=== PATIENT | male | born 1950 | race Caucasian/White ===

== ENCOUNTER 2017-01-18 15:57 | Observation (INO) | payer BC, OTHER ==
[2017-01-18] VITALS (7 sets, daily range): BP systolic 147–176; BP diastolic 74–88; PULSE 53–60; RESP 16–18; TEMP 97.6–98.5; O2SAT 94–98
[~2017-01-18] VITALS: Ht 167.6 cm; Wt 100.0 kg
[~2017-01-18 15:57] MED LIST: B-COTAB41 PO; CALCCHW25 PO; CHOL1CAP6 PO; DIOV160T3 PO; FISH100020 PO; LABE200 PO; MEDR4PAK3 PO; SLOWTAB PO; TAMS0.4C67 PO; VITA400C70 PO
--- NOTE | 2017-01-18 16:36 | PD ---
HPI . abdominal pain x 2 weeks Chief Complaint: Abdominal Pain Time Seen by Provider: 16:29 Travel History International Travel<30 days: No Contact w/Intl Traveler<30days: No Traveled to known affect area: No History of Present Illness HPI 66-year-old male with history of hypertension and osteoarthritis here with complaints of abdominal pain that has been intermittent for the past 2 weeks. Patient reports that he has not had any nausea, vomiting or diarrhea. He reports a very dull abdominal pain that comes and goes especially with coughing and deep inspirations. At max pain is rated at 7/10, but currently his pain is 2/10. He admits to increase burping, but denies any reflux. He thought he initially pulled muscles, but says that his pain is not getting better and it still intermittently going on. He contacted his primary care provider Dr. Puente was told to come to the emergency department. He denies any nausea, vomiting, diarrhea, diaphoresis, chest pain or shortness of breath. On examination patient is showing me that the pain is located mainly in his upper left quadrant also radiating into his left chest. When he actually points to the pain he is pointing more so in the left lower chest wall. 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) Pacemaker: No Tonsillectomy: Yes Other Surgery: Yes (03/31 cerebral coiling; 03/01 knee arthroscopy) Social History Alcohol Use: Yes (OCCAS) Tobacco Use: No Substance Use: No Allergies-Medications (Allergen,Severity, Reaction): Coded Allergies: MRI PRECAUTION (Verified Allergy, Severe, 01/18/17) HEAD Reported Meds & Prescriptions Reported Meds & Active Scripts Active Medrol Dosepak (Methylprednisolone) 4 Mg Osman 4 Mg PO DIRECTED TAKE DIRECTED Reported Slow-Mag (Magnesium Chloride) 64 Mg Tab 2 Tab PO DAILY Fish Oil ([place]-3 Fatty Acids) 1,000 Mg Cap 1,000 Mg PO DAILY Vitamin E-400 (Vitamin E) 400 Unit Cap 400 Unit PO DAILY Vitamin B-Complex (Multivitamins/Vitamin B Complex) Vitamin Tab 1 Tab PO DAILY Vitamin D-3 (Cholecalciferol) 1,000 Unit Tab 1,000 Unit PO DAILY Calcium + D (Calcium Carbonate/Cholecalciferol) Chw 1 Tab PO DAILY 1200MG CALCIU,/D3 1000 IU Flomax (Tamsulosin HCl) 0.4 Mg Cap 0.4 Mg PO DAILY Diovan Hct 160/12.5 (HCTZ/Valsartan) Tab 1 Tab PO DAILY Trandate 200 mg Tab (Labetalol HCl) 200 Mg Tab 200 Mg PO DAILY Review of Systems General / Constitutional: No: Fever Eyes: No: Visual changes HENT: No: Headaches Cardiovascular: Positive: Chest Pain or Discomfort Respiratory: No: Shortness of Breath Gastrointestinal: Positive: Abdominal Pain (LUQ) Genitourinary: No: Dysuria Musculoskeletal: No: Pain Skin: No Rash Neurologic: No: Weakness Psychiatric: No: Depression Endocrine: No: Polydipsia Hematologic/Lymphatic: No: Easy Bruising Physical Exam Narrative GENERAL: AAO x 3, no acute distress, Well-nourished, well-developed patient. SKIN: Warm and dry. No visible rashes or bruising. HEAD: Normocephalic and atraumatic. EYES: No scleral icterus. No injection or drainage. EOM intact, PERRLA ENT: No nasal drainage noted. Mucous membranes pink. Airway patent. NECK: Supple, trachea midline. No JVD. CARDIOVASCULAR: Regular rate and rhythm without murmurs, gallops, or rubs. No reproducible chest pain on examination. RESPIRATORY: Breath sounds equal bilaterally. No accessory muscle use. No rhonchi or rales. GASTROINTESTINAL: Abdomen soft, non-tender, nondistended. No rebound, no guarding, no Smith's tenderness or McBurney's point tenderness EXTREMITIES: No cyanosis or edema. BACK: Nontender without obvious deformity. No CVA tenderness. No reproducible back pain on examination NEURO: CN II-12 intact, adobe flex developer strength normal b/l, UE and LE 5/5, no focal deficits PSYCH: AAO x 3, normal affect. Data Data Last Documented VS Vital Signs Date Time Temp Pulse Resp B/P Pulse Ox O2 Delivery O2 Flow Rate FiO2 01/18/17 16:38 57 Room Air 01/18/17 16:38 97 01/18/17 16:36 18 162/84 01/18/17 15:59 98.5 Orders Electrocardiogram (01/18/17 16:36) Basic Metabolic Panel (Bmp) (01/18/17 16:36) Ckmb (Isoenzyme) Profile (01/18/17 16:36) Complete Blood Count With Diff (01/18/17 16:36) Magnesium (Mg) (01/18/17 16:36) Prothrombin Time / Inr (Pt) (01/18/17 16:36) Act Partial Throm Time (Ptt) (01/18/17 16:36) Troponin I (01/18/17 16:36) Lipase (01/18/17 16:36) Chest, Single Ap (01/18/17 16:36) Ecg Monitoring (01/18/17 16:36) Bilateral Bp Monitoring (01/18/17 16:36) Iv Access Insert/Monitor (01/18/17 16:36) Oximetry (01/18/17 16:36) Oxygen Administration (01/18/17 16:36) Urinalysis - C+S If Indicated (01/18/17 16:36) CKMB (01/18/17 17:35) CKMB% (01/18/17 17:35) Admit Order (Ed Use Only) (01/18/17 18:22) Activity Bed Rest With Brp (01/18/17 18:23) Vital Signs (Adult) Q4H (01/18/17 18:23) Cardiac Rhythm .As Directed (01/18/17 18:23) Notify Dr: Other .PRN (01/18/17 18:23) Notify Dr. Parameters (01/18/17 18:23) Resp Oxygen Nasal Cannula (01/18/17 ) Ckmb (Isoenzyme) Profile (01/18/17 20:35) Ckmb (Isoenzyme) Profile (01/18/17 23:35) Troponin I (01/18/17 20:35) Troponin I (01/18/17 23:35) Electrocardiogram (01/18/17 18:23) ^ Obtain (01/18/17 18:23) Sodium Chloride 0.9% Flush (Ns Flush) (01/18/17 18:30) Sodium Chloride 0.9% Flush (Ns Flush) (01/18/17 21:00) Daylight Driller / Telemetry DEBO.Q8H (01/18/17 18:23) Labs Laboratory Tests Test 01/18/17 17:35 White Blood Count 6.6 TH/MM3 Red Blood Count 4.59 MIL/MM3 Hemoglobin 14.0 GM/DL Hematocrit 41.1 % Mean Corpuscular Volume 89.5 FL Mean Corpuscular Hemoglobin 30.6 PG Mean Corpuscular Hemoglobin 34.1 % Concent Red Cell Distribution Width 13.5 % Platelet Count 166 TH/MM3 Mean Platelet Volume 8.7 FL Neutrophils (%) (Auto) 62.6 % Lymphocytes (%) (Auto) 23.4 % Monocytes (%) (Auto) 10.6 % Eosinophils (%) (Auto) 2.8 % Basophils (%) (Auto) 0.6 % Neutrophils # (Auto) 4.1 TH/MM3 Lymphocytes # (Auto) 1.5 TH/MM3 Monocytes # (Auto) 0.7 TH/MM3 Eosinophils # (Auto) 0.2 TH/MM3 Basophils # (Auto) 0.0 TH/MM3 CBC Comment DIFF FINAL Differential Comment Prothrombin Time 10.9 SEC Prothromb Time International 1.0 RATIO Ratio Activated Partial 26.6 SEC Thromboplast Time Urine Color YELLOW Urine Turbidity CLEAR Urine pH 6.5 Urine Specific [place] 1.027 Urine Protein TRACE mg/dL Urine Glucose (UA) NEG mg/dL Urine Ketones NEG mg/dL Urine Occult Blood NEG Urine Nitrite NEG Urine Bilirubin NEG Urine Urobilinogen LESS THAN 2.0 MG/DL Urine Leukocyte Esterase NEG Urine Hyaline Casts 2 /lpf Urine Mucus FEW /lpf Microscopic Urinalysis Comment CULT NOT INDICATED Sodium Level 140 MEQ/L Potassium Level 4.0 MEQ/L Chloride Level 106 MEQ/L Carbon Dioxide Level 27.2 MEQ/L Anion Gap 7 MEQ/L Blood Urea Nitrogen 23 MG/DL Creatinine 1.04 MG/DL Estimat Glomerular Filtration 72 ML/MIN Rate Random Glucose 78 MG/DL Calcium Level 9.1 MG/DL Magnesium Level 2.3 MG/DL Total Creatine Kinase 198 U/L Creatine Kinase MB 2.2 NG/ML Troponin I LESS THAN 0.02 NG/ML Lipase 210 U/L [facility] Medical Decision Making Medical Screen Exam Complete: Yes Emergency Medical Condition: Yes Medical Record Reviewed: Yes Differential Diagnosis Angina, chest pain, pancreatitis, ACS, colitis, constipation, diverticulitis, less likely appendicitis Narrative Course 66-year-old male here with complaints of abdominal pain. On examination patient is more so pointing to his chest area. Abdominal examination is benign. It is possible that he may have angina versus ACS versus pancreatitis. IV access has been obtained. Patient placed on continuous cardiac monitoring. Labs, chest x-ray and EKG have been ordered. Case has been discussed with my attending Dr. Oshea. I do not think scanning patient's abdomen will benefit him. The entire abdominal examination is unremarkable. He could have some pulled muscles causing his symptoms. I reviewed all of the labs. I discussed with patient and his family at bedside. Last Impressions Chest X-Ray 01/18/17 1636 Signed Impressions: Service Date/Time: Saturday, January 18, 2017 16:46 - CONCLUSION: 1. No acute cardiopulmonary disease. Hollis Chua MD Laboratory Tests Test 01/18/17 17:35 White Blood Count 6.6 TH/MM3 Red Blood Count 4.59 MIL/MM3 Hemoglobin 14.0 GM/DL Hematocrit 41.1 % Mean Corpuscular Volume 89.5 FL Mean Corpuscular Hemoglobin 30.6 PG Mean Corpuscular Hemoglobin 34.1 % Concent Red Cell Distribution Width 13.5 % Platelet Count 166 TH/MM3 Mean Platelet Volume 8.7 FL Neutrophils (%) (Auto) 62.6 % Lymphocytes (%) (Auto) 23.4 % Monocytes (%) (Auto) 10.6 % Eosinophils (%) (Auto) 2.8 % Basophils (%) (Auto) 0.6 % Neutrophils # (Auto) 4.1 TH/MM3 Lymphocytes # (Auto) 1.5 TH/MM3 Monocytes # (Auto) 0.7 TH/MM3 Eosinophils # (Auto) 0.2 TH/MM3 Basophils # (Auto) 0.0 TH/MM3 CBC Comment DIFF FINAL Differential Comment Prothrombin Time 10.9 SEC Prothromb Time International 1.0 RATIO Ratio Activated Partial 26.6 SEC Thromboplast Time Urine Color YELLOW Urine Turbidity CLEAR Urine pH 6.5 Urine Specific [place] 1.027 Urine Protein TRACE mg/dL Urine Glucose (UA) NEG mg/dL Urine Ketones NEG mg/dL Urine Occult Blood NEG Urine Nitrite NEG Urine Bilirubin NEG Urine Urobilinogen LESS THAN 2.0 MG/DL Urine Leukocyte Esterase NEG Urine Hyaline Casts 2 /lpf Urine Mucus FEW /lpf Microscopic Urinalysis Comment CULT NOT INDICATED Sodium Level 140 MEQ/L Potassium Level 4.0 MEQ/L Chloride Level 106 MEQ/L Carbon Dioxide Level 27.2 MEQ/L Anion Gap 7 MEQ/L Blood Urea Nitrogen 23 MG/DL Creatinine 1.04 MG/DL Estimat Glomerular Filtration 72 ML/MIN Rate Random Glucose 78 MG/DL Calcium Level 9.1 MG/DL Magnesium Level 2.3 MG/DL Total Creatine Kinase 198 U/L Creatine Kinase MB 2.2 NG/ML Troponin I LESS THAN 0.02 NG/ML Lipase 210 U/L I recommend admission to the chest pain center for serial monitoring of cardiac enzymes and EKG. I will also check a CT angio to R/O PE. CT angio is negative for pulmonary emboli. I have discussed with family and patient and he is in agreement. Diagnosis Primary Impression: Chest pain Qualified Code: R07.1 - Chest pain on breathing Admitting Information Admitting Physician Requests: Admit Condition: Stable Jessica Hernandez Jan 18, 2017 16:36
--- NOTE | 2017-01-18 17:11 | RADRPT ---
EXAM DATE/TIME: 01/18/2017 16:46 [facility] COMPARISON: CHEST PA & LAT, May 24, 2014, 9:34. INDICATIONS : Chest pain sudden onset today. MEDICAL HISTORY : None. SURGICAL HISTORY : None. ENCOUNTER: Initial ACUITY: 1 day PAIN SCORE: 4/10 LOCATION: Bilateral chest FINDINGS: Lungs are slightly hypoaerated but are otherwise clear. Redemonstration of tortuous thoracic aorta. C ardio mediastinal contours are stable. Bony thorax is grossly intact. CONCLUSION: 1. No acute cardiopulmonary disease. Hollis Chua MD on January 18, 2017 at 17:08 Board Certified Radiologist. This report was verified electronically.
[2017-01-18 17:51] LABS: BLOOD, URINE NEG (NEG); COMMENT (UR) CULT NOT INDICATED; CULTURE IF INDICATED CULT NOT INDICATED; GLUCOSE,URINE NEG (NEG); HYALINE CAST, URINE 2 /lpf (RARE); KETONE, URINE NEG (NEG); MUCUS URINE FEW /lpf (OCC); NITRITE,URINE NEG (NEG); PH, URINE 6.5 (5.0-8.5); URINE COLOR YELLOW (YELLW/STRAW)
[2017-01-18 18:00] LABS: APTT (PATIENT) 26.6 SEC (24.3-30.1); PROTHROMBIN TIME - PATIENT 10.9 SEC (9.8-11.6)
[2017-01-18 18:01] LABS: AUTOMATED NEUTROPHIL # 4.1 TH/MM3 (1.8-7.7); BASOPHIL % 0.6 % (0.0-2.0); EOSINOPHIL # 0.2 TH/MM3 (0-0.4); EOSINOPHIL % 2.8 % (0.0-4.0); HEMATOCRIT 41.1 % (39.0-51.0); HEMO FLAGS DIFF FINAL; LYMPH % 23.4 % (9.0-44.0); LYMPHOCYTE # 1.5 TH/MM3 (1.0-4.8); MEAN CELL VOLUME 89.5 FL (80.0-100.0); MEAN CORPUSCULAR HEMOGLOBIN 30.6 PG (27.0-34.0); MEAN CORPUSCULAR HGB CONC 34.1 % (32.0-36.0); MONO % 10.6 % (0.0-8.0); NEUT % 62.6 % (16.0-70.0); PLATELET COUNT 166 TH/MM3 (150-450); RED BLOOD COUNT 4.59 MIL/MM3 (4.50-5.90); RED CELL DISTRIBUTION WIDTH 13.5 % (11.6-17.2); WHITE BLOOD COUNT 6.6 TH/MM3 (4.0-11.0)
[2017-01-18 18:09] LABS: CREATINE KINASE 198 U/L (39-308)
[2017-01-18 18:15] LABS: ANION GAP 7 MEQ/L (5-15); BICARBONATE 27.2 MEQ/L (21.0-32.0); BLOOD UREA NITROGEN 23 MG/DL (7-18); CHLORIDE 106 MEQ/L (98-107); GLOMERULAR FILTRATION RATE 72 ML/MIN (>89); MAGNESIUM 2.3 MG/DL (1.5-2.5); SODIUM (NA) 140 MEQ/L (136-145)
[2017-01-18 18:22] LABS: CKMB 2.2 NG/ML (0.5-3.6)
[2017-01-18] MEDS ORDERED: SODIUM CHLORIDE 0.9% FLUSH 10 ML FLUSH IV FLUSH PRN (18:30)
[2017-01-18] MEDS ORDERED: IOHEXOL 350 MG/ML 10 ML VIAL (for RAD DIAG) IV ONE (19:41)
--- NOTE | 2017-01-18 20:02 | RADRPT ---
EXAM DATE/TIME: 01/18/2017 19:28 [facility] COMPARISON: No previous studies available for comparison. INDICATIONS : Chest pain. IV CONTRAST: 65 cc Omnipaque 350 (iohexol) IV RADIATION DOSE: 16.64 CTDIvol (mGy) MEDICAL HISTORY : Cardiovascular disease. SURGICAL HISTORY : None. ENCOUNTER: Initial ACUITY: 1 day PAIN SCALE: 5/10 LOCATION: chest TECHNIQUE: Volumetric scanning of the chest was performed using a pulmonary embolism protocol MIP images were re constructed. Using automated exposure control and adjustment of the mA and/or kV according to patien t size, radiation dose was kept as low as reasonably achievable to obtain optimal diagnostic quality images. DICOM format image data is available electronically for review and comparison. Follow-up recommendations for incidentally detected pulmonary nodules are based at a minimum on nodul e size and patient risk factors according to Fleischner Society Guidelines. FINDINGS: No filling defects identified to suggest pulmonary embolic disease. Minimal dependent atelectasis in the lungs. No consolidation. No effusion. No adenopathy. CONCLUSION: 1. Negative for pulmonary embolus. No acute findings. Rafael Reis MD on January 18, 2017 at 19:58 Board Certified Radiologist. This report was verified electronically.
[2017-01-18] MEDS ORDERED: MELO7.5T4 PO (20:36)
[2017-01-18] MEDS ORDERED: DIOV160T3 PO (20:36)
[2017-01-18] MEDS ORDERED: LABE200T2 PO (20:36)
[2017-01-18] MEDS ORDERED: ASPI325T PO (20:36)
[2017-01-18] MEDS ORDERED: TAMS0.4C4 PO (20:36)
[2017-01-18] MEDS: SODIUM CHLORIDE 0.9% FLUSH 10 ML FLUSH IV FLUSH SCH (21:00)
[2017-01-18 22:13] LABS: CREATINE KINASE 180 U/L (39-308)
[2017-01-18] MEDS ORDERED: ACETAMINOPHEN 325 MG TAB PO PRN (22:15)
[2017-01-18] MEDS ORDERED: cloNIDine HCL 0.2 MG TAB PO PRN (22:15)
[2017-01-18 22:25] LABS: CKMB 1.7 NG/ML (0.5-3.6)
[2017-01-19] VITALS (8 sets, daily range): BP systolic 108–139; BP diastolic 68–85; PULSE 45–68; RESP 18; TEMP 97.7–97.8; O2SAT 93–98
[2017-01-19 01:12] LABS: CREATINE KINASE 173 U/L (39-308)
[2017-01-19 01:24] LABS: CKMB 1.3 NG/ML (0.5-3.6)
[2017-01-19] MEDS ORDERED: NITROGLYCERIN 0.4 MG SL 25 TABS/BTL SL PRN (07:45)
[2017-01-19] MEDS ORDERED: ONDANSETRON HCL 4 MG/2 ML VIAL IV PRN (07:45)
[2017-01-19] MEDS: SODIUM CHLORIDE 0.9% FLUSH 10 ML FLUSH IV FLUSH SCH (09:00)
[2017-01-19] MEDS ORDERED: ASPIRIN 325 MG TAB PO SCH (09:00)
--- NOTE | 2017-01-19 09:09 | HHI.HP ---
HPI Primary Care Physician Mimi Puente MD Chief Complaint Chest pain History of Present Illness 66-year-old patient with history of hypertension presents to the emergency room for further evaluation of left-sided chest pain. Onset 3 weeks ago. Location left lower rib area. Made worse with movements, coughing, and/or twisting. Breathing does not make pain better or worse. Yesterday he sneeze and pain lasted 30 minutes. Radiated or/10. No associated symptoms of nausea, vomiting , diaphoresis, or shortness of breath. No known precipitating or relieving factors. No known trauma or injury to affected area. Subsequently called his primary care provider, Dr. Puente, and he was recommended to come to the ER for further evaluation. Review of Systems General: No fatigue,weakness, fever, chills, recent illness, or change in appetite. Has been in his general state of health. HEENT: No MARIA, no vision changes, no dysphasia CV: As stated above. Continues to have left sided lower rib discomfort made worse with movement. RESP: No SOB, cough, wheeze, or history of asthma GI: No nausea, vomiting, bowel changes, diarrhea, constipation, pain, distention , melena, or blood in the stool. No change in appetite, no unintentional weight gain or weight loss. : No dysuria EXT: No lower leg edema, no paraesthesias MS: No discomfort or change in ROM, no known injury, trauma, or recent fall NEURO: No difficulty with balance, LOC, motor/sensory deficits SKIN: No rashes, no concerning lesions Past Family Social History Allergies: Coded Allergies: MRI PRECAUTION (Verified Allergy, Severe, 01/18/17) HEAD Past Medical History Hypertension, osteoarthritis Past Surgical History Cerebral coiling Reported Medications Reported Meds & Active Scripts Active Reported Labetalol (Labetalol HCl) 200 Mg Tab 200 Mg PO DAILY Diovan Hct (Valsartan-Hydrochlorothiazide) 160-12.5 Mg Tab 1 Tab PO DAILY Meloxicam 7.5 Mg Tab 7.5 Mg PO DAILY Aspirin 325 Mg Tab 325 Mg PO DAILY Tamsulosin (Tamsulosin HCl) 0.4 Mg Cap 0.4 Mg PO HS Active Ordered Medications Current Medications Medications (Trade) Dose Ordered Sig/Inga Route Start Time Stop Time Status Last Admin (NS Flush) 2 ml UNSCH PRN IV FLUSH 01/18/17 18:30 (NS Flush) 2 ml BID IV FLUSH 01/18/17 21:00 01/18/17 21:00 (Tylenol) 650 mg Q6H PRN PO 01/18/17 22:15 01/18/17 22:30 (Catapres) 0.2 mg Q6H PRN PO 01/18/17 22:15 01/18/17 22:30 (Zofran Inj) 4 mg Q6H PRN IV 01/19/17 07:45 (Nitrostat Sl) 0.4 mg Q5M PRN SL 01/19/17 07:45 (Aspirin) 325 mg DAILY PO 01/19/17 09:00 Family History Noncontributory for early onset cardiovascular disease. Social History Known hypertension. No known diabetes or hyperlipidemia. Quit smoking over 30 years ago. Denies any alcohol or illegal drug use. 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 Past cardiac testing No recent stress testing. Endorses chemical stress test approximately 5 years ago. Never required cardiac catheterization. Physical Exam Vital Signs Vital Signs Date Time Temp Pulse Resp B/P Pulse Ox O2 Delivery O2 Flow Rate FiO2 01/19/17 07:10 97.8 45 139/85 93 01/19/17 04:45 48 01/19/17 03:38 97.7 56 18 127/79 98 01/19/17 00:48 47 01/19/17 00:21 96 01/19/17 00:20 96 01/19/17 00:06 97.7 55 18 108/68 97 01/18/17 21:30 53 01/18/17 21:24 97.6 53 18 176/86 94 01/18/17 20:36 52 18 152/74 98 01/18/17 20:00 55 18 161/88 01/18/17 16:38 57 Room Air 01/18/17 16:38 57 01/18/17 16:38 97 01/18/17 16:36 60 18 162/84 96 Room Air 01/18/17 15:59 98.5 53 16 147/87 98 Room Air Physical Exam GENERAL: Alert WN, WD, NAD, pleasant, obese, male HEAD: NC, AT EYES: Sclera clear, conjunctiva without injection, pupils equal and round ENT: Mucous membranes pink and moist NECK: Supple, no masses, trachea midline CV: RRR, without murmur, rub, gallop, no JVD, S1-S2 no S3-S4. No carotid bruits. RESP: Clear lungs throughout bilateral, no crackles, wheeze, rhonchi, symmetrical chest rise, nonlabored, able to speak in full sentences ABD: Soft, NT, ND, no masses, positive bowel tones, obese, round BACK: No CVAT, no scoliosis EXT: Pulses +24, no dependent edema MS: Normal tone 4 extremities, nontender, no obvious deformities, full range of motion NEURO: CN II through CN XII grossly intact, motor strength 5/5, gait WNL PSYCH: A+O 3, pleasant affect, appropriate speech, appropriate mood and affect , insight and judgment SKIN: Normal turgor, normal texture, no lesions, no rashes, brisk cap refill, even hair distribution Laboratory Laboratory Tests Test 01/18/17 01/18/17 01/19/17 17:35 21:15 00:10 White Blood Count 6.6 Red Blood Count 4.59 Hemoglobin 14.0 Hematocrit 41.1 Mean Corpuscular Volume 89.5 Mean Corpuscular Hemoglobin 30.6 Mean Corpuscular Hemoglobin 34.1 Concent Red Cell Distribution Width 13.5 Platelet Count 166 Mean Platelet Volume 8.7 Neutrophils (%) (Auto) 62.6 Lymphocytes (%) (Auto) 23.4 Monocytes (%) (Auto) 10.6 Eosinophils (%) (Auto) 2.8 Basophils (%) (Auto) 0.6 Neutrophils # (Auto) 4.1 Lymphocytes # (Auto) 1.5 Monocytes # (Auto) 0.7 Eosinophils # (Auto) 0.2 Basophils # (Auto) 0.0 CBC Comment DIFF FINAL Differential Comment Prothrombin Time 10.9 Prothromb Time International 1.0 Ratio Activated Partial 26.6 Thromboplast Time Urine Color YELLOW Urine Turbidity CLEAR Urine pH 6.5 Urine Specific [place] 1.027 Urine Protein TRACE Urine Glucose (UA) NEG Urine Ketones NEG Urine Occult Blood NEG Urine Nitrite NEG Urine Bilirubin NEG Urine Urobilinogen LESS THAN 2.0 Urine Leukocyte Esterase NEG Urine Hyaline Casts 2 Urine Mucus FEW Microscopic Urinalysis Comment CULT NOT INDICATED Sodium Level 140 Potassium Level 4.0 Chloride Level 106 Carbon Dioxide Level 27.2 Anion Gap 7 Blood Urea Nitrogen 23 Creatinine 1.04 Estimat Glomerular Filtration 72 Rate Random Glucose 78 Calcium Level 9.1 Magnesium Level 2.3 Total Creatine Kinase 198 180 173 Creatine Kinase MB 2.2 1.7 1.3 Troponin I LESS THAN 0.02 LESS THAN 0.02 LESS THAN 0.02 Lipase 210 Result Diagram: 01/18/17 1735 01/18/17 [address] Angiography 01/18/17 1831 Signed Impressions: Service Date/Time: Wednesday, January 18, 2017 19:28 - CONCLUSION: 1. Negative for pulmonary embolus. No acute findings. Rafael Reis MD Chest X-Ray 01/18/17 1636 Signed Impressions: Service Date/Time: Wednesday, January 18, 2017 16:46 - CONCLUSION: 1. No acute cardiopulmonary disease. Hollis Chua MD Course EKG Normal sinus bradycardia, left axis deviation, nonspecific T-wave changes Assessment and Plan Assessment and Plan Chest wall painadmitted to chest pain center. Ruled out with 3 sets of EKGs, cardiac enzymes, monitor overnight. Seen and evaluated by Dr. Walt Chen. Completed exercise stress test with no signs of ischemia. Discharge home with follow-up to Dr. Puente. Toradol 30 mg IV 1 dose, continue meloxicam home- going. Hypertensioncontinue Diovan, encouraged a low sodium diet, and increasing daily activity. Aleta Huerta Jan 19, 2017 09:09
[2017-01-19] MEDS ORDERED: VALSARTAN 160 MG TAB PO SCH (09:15)
[2017-01-19] MEDS ORDERED: KETOROLAC TROMETHAMINE 60 MG/2 ML (IM) VIAL IM ONE (09:15)
[2017-01-19] MEDS ORDERED: HYDROCHLOROTHIAZIDE 12.5 MG CAP PO SCH (09:15)
--- NOTE | 2017-01-19 10:41 | TR ---
Date Performed: 01/19/2017 Time Performed: 09:40:18 DOCTOR: Walt Chen DRUG LIST: CLINICAL HISTORY: REASON FOR TEST: Chest pain REASON FOR ENDING: OBSERVATION: CONCLUSION: Abdon protocol completed. Stopped sec reaching target heart rate and leg fatigue.Tar get HR Achieved=85.0% Maximum BY=882/96 Total Exercise Time=8:32 Maximum PT=939. No chest discomfort. No ectopy. No st t segment changes to sugg ischemia. Good exercise tolerance. Normal bp response. Re covery quick and unremarkable. COMMENTS: Conclusion: Normal treadmill exercise. No evidence of ischemia.
--- NOTE | 2017-01-19 11:01 | HHI.DCPOC ---
Discharge Care Plan Diagnosis: (1) Chest wall pain Goals to Promote Your Health * To prevent worsening of your condition and complications * To maintain your health at the optimal level Directions to Meet Your Goals Take your medications as prescribed Follow your dietary instruction Follow activity as directed Keep your appointments as scheduled Take your immunizations and boosters as scheduled If your symptoms worsen call your PCP, if no PCP go to Urgent Care Center or Emergency Room Smoking is Dangerous to Your Health. Avoid second hand smoke Call the 24-hour hour crisis hotline for domestic abuse at Walt Chen MD Jan 19, 2017 11:01
--- NOTE | 2017-01-19 17:11 | EKG ---
Date Performed: 01/19/2017 Time Performed: 00:12:22 PTAGE: 66 years EKG: SINUS BRADYCARDIA MARKED LEFT AXIS DEVIATION MODERATE INTRAVENTRICULAR CONDUCTION DELAY NON SPECIFIC T-WAVE ABNORMALITY ABNORMAL ECG PREVIOUS TRACING : 01/18/2017 21.14 Since previous tracing, no significant change noted DOCTOR: Walt Chen Interpretating Date/Time 01/19/2017 17:10:24
--- NOTE | 2017-01-19 17:14 | EKG ---
Date Performed: 01/18/2017 Time Performed: 21:14:09 PTAGE: 66 years EKG: SINUS BRADYCARDIA WITH PACs MARKED LEFT AXIS DEVIATION MODERATE INTRAVENTRICULAR CONDUCTION DELAY ABNORMAL ECG PREVIOUS TRACING : 01/18/2017 16.44 Compared to previous tracing ,PACs are new. DOCTOR: Walt Chen Interpretating Date/Time 01/19/2017 17:12:39
--- NOTE | 2017-01-19 17:16 | EKG ---
Date Performed: 01/18/2017 Time Performed: 16:44:24 PTAGE: 66 years EKG: SINUS BRADYCARDIA MARKED LEFT AXIS DEVIATIon MODERATE INTRAVENTRICULAR CONDUCTION DELAY ABN ORMAL ECG PREVIOUS TRACING : 05/24/2014 09.18 Since previous tracing, no significant change noted DOCTOR: Walt Chen Interpretating Date/Time 01/19/2017 17:16:30
== END 2017-01-19 11:51 | disposition home or self-care (01) ==
LOC: NEPC 15:57 → NEDA 18:24 → NEPHCDU 20:48
PROVIDERS: ADMIT Internal Medicine Interventional Cardiology; ATTEND Internal Medicine Interventional Cardiology
DX: R07.1 Chest pain on breathing (principal); I10 Essential (primary) hypertension; R00.1 Bradycardia, unspecified; M19.90 Unspecified osteoarthritis, unspecified site; Z79.82 Long term (current) use of aspirin
CPT/HCPCS: 71010; 71275; 80048; 81001; 82550; 82552; 83690; 83735; 84484; 85025; 85610; 85730; 93005; 93017; 99285; G0378; J1885; Q9967

== ENCOUNTER 2017-07-30 15:13 | Inpatient (IN) | payer BC ==
[~2017-07-30] VITALS: Ht 170.2 cm; Wt 101.5 kg
[~2017-07-30 15:13] MED LIST changes: +ASPI-183 PO; -B-COTAB41 PO; -CALCCHW25 PO; -CHOL1CAP6 PO; -FISH100020 PO; -LABE200 PO; +LABE200T2 PO; -MEDR4PAK3 PO; +MELO7.5T27 PO; -SLOWTAB PO; +TAMS0.4C4 PO; -TAMS0.4C67 PO; -VITA400C70 PO
[2017-07-30 15:20] VITALS: BP 80/64; PULSE 150; RESP 20; TEMP 97.9; O2SAT 96
[2017-07-30] MEDS ORDERED: SODIUM CHLOR 0.9% 1000 ML INJ 1,000 ML IV ONE (15:26)
[2017-07-30] MEDS ORDERED: SODIUM CHLORIDE 0.9% FLUSH 10 ML FLUSH IVF PRN (15:30)
--- NOTE | 2017-07-30 15:36 | PD ---
HPI Chief Complaint: dizziness Time Seen by Provider: 15:20 Travel History International Travel<30 days: No Contact w/Intl Traveler<30days: No Traveled to known affect area: No History of Present Illness HPI The patient is a 66-year-old male who presents to the emergency department via EMS from the [facility] (formerly [facility]) for dizziness. The patient states he was shoveling dirt earlier today when he developed lightheadedness and dizziness. The patient also complains of an elevated heart rate, mild shortness of breath, and some anterior left-sided chest discomfort which has resolved. When EMS arrived he stated the patient was in A. fib with RVR and a low blood pressure with a systolic in the 80s. The patient does not have a history of atrial fibrillation, has been seen by Dr. Chen of the chest pain Center in the past with negative stress test. The patient currently takes aspirin as well as labetalol for his A. fib. He denies any headache, nausea, vomiting, diarrhea, or abdominal pain. Symptoms are moderate, have slightly improved since arrival to the emergency department. The patient took a full size aspirin this morning. PFSH Past Medical History Heart Rhythm Problems: No Cancer: No Cardiac Catheterization: No Cardiovascular Problems: Yes High Cholesterol: No Congestive Heart Failure: No Diabetes: No Diminished Hearing: No Endocrine: No Gastrointestinal Disorders: No Glaucoma: No Genitourinary: No Headaches: Yes Hepatitis: No Hiatal Hernia: No Hypertension: Yes Immune Disorder: No Musculoskeletal: Yes Neurologic: No Psychiatric: No Respiratory: No Thyroid Disease: No Past Surgical History Body Medical Devices: COIL ANEURYSM Coronary Artery Bypass Graft: No Eye Surgery: Yes (RIGHT CATARACT) Genitourinary Surgery: Yes Neurologic Surgery: Yes (BASILAR TIP ANEURYSM COILED 2007) Pacemaker: No Tonsillectomy: Yes Other Surgery: Yes (03/31 cerebral coiling; 03/01 knee arthroscopy) Social History Alcohol Use: Yes (OCCAS) Tobacco Use: No (quit 30 yrs ago) Substance Use: No Allergies-Medications (Allergen,Severity, Reaction): Coded Allergies: MRI PRECAUTION (Verified Allergy, Severe, 01/18/17) HEAD Reported Meds & Prescriptions Reported Meds & Active Scripts Active Reported Labetalol (Labetalol HCl) 200 Mg Tab 200 Mg PO DAILY Diovan Hct (Valsartan-Hydrochlorothiazide) 160-12.5 Mg Tab 1 Tab PO DAILY Meloxicam 7.5 Mg Tab 7.5 Mg PO DAILY Aspirin 325 Mg Tab 325 Mg PO DAILY Tamsulosin (Tamsulosin HCl) 0.4 Mg Cap 0.4 Mg PO HS Review of Systems Except as stated in HPI: all other systems reviewed are Neg General / Constitutional: No: Fever HENT: Positive: Lightheadedness Cardiovascular: Positive: Chest Pain or Discomfort, Palpitations, Irregular Rhythm, Tachycardia Respiratory: Positive: Shortness of Breath Gastrointestinal: No: Nausea, Vomiting, Diarrhea, Abdominal Pain Musculoskeletal: Positive: Weakness Neurologic: Positive: Dizziness Physical Exam Narrative GENERAL: Awake, alert, pleasant 66-year-old male who appears his stated age and is in no acute respiratory distress. SKIN: Focused skin assessment warm/dry. HEAD: Atraumatic. Normocephalic. EYES: Pupils equal and round. No scleral icterus. No injection or drainage. ENT: No nasal bleeding or discharge. Mucous membranes pink and moist. NECK: Trachea midline. No JVD. CARDIOVASCULAR: Irregularly irregular, tachycardic with a heart rate in the 140s. RESPIRATORY: No accessory muscle use. Clear to auscultation. Breath sounds equal bilaterally. GASTROINTESTINAL: Abdomen soft, non-tender, nondistended. No rebound tenderness. MUSCULOSKELETAL: No obvious deformities. No clubbing. No cyanosis. No edema. NEUROLOGICAL: Awake and alert. No obvious cranial nerve deficits. Motor grossly within normal limits. Normal speech. PSYCHIATRIC: Appropriate mood and affect; insight and judgment normal. Data Data Last Documented VS Vital Signs Date Time Temp Pulse Resp B/P (MAP) Pulse Ox O2 Delivery O2 Flow Rate FiO2 07/30/17 16:01 132 110/58 (75) 07/30/17 15:45 17 98 Nasal Cannula 2.00 07/30/17 15:20 97.9 Orders Orders Electrocardiogram (07/30/17 15:26) Complete Blood Count With Diff (07/30/17 15:26) Comprehensive Metabolic Panel (07/30/17 15:26) Magnesium (Mg) (07/30/17 15:26) B-Type Natriuretic Peptide (07/30/17 15:26) Ckmb (Isoenzyme) Profile (07/30/17 15:26) Troponin I (07/30/17 15:26) Chest, Single Ap (07/30/17 15:26) Ecg Monitoring (07/30/17 15:26) Iv Access Insert/Monitor (07/30/17 15:26) Oximetry (07/30/17 15:26) Sodium Chloride 0.9% Flush (Ns Flush) (07/30/17 15:30) Sodium Chlor 0.9% 1000 Ml Inj (Ns 1000 M (07/30/17 15:26) Digoxin Inj (Lanoxin Inj) (07/30/17 15:45) Diltiazem Inj (Cardizem Inj) (07/30/17 16:15) Diltiazem Inj (Cardizem Inj) (07/30/17 16:15) CKMB (07/30/17 15:50) CKMB% (07/30/17 15:50) Labs Laboratory Tests Test 07/30/17 15:50 White Blood Count 10.0 TH/MM3 Red Blood Count 4.67 MIL/MM3 Hemoglobin 14.1 GM/DL Hematocrit 41.8 % Mean Corpuscular Volume 89.5 FL Mean Corpuscular Hemoglobin 30.2 PG Mean Corpuscular Hemoglobin Concent 33.7 % Red Cell Distribution Width 13.8 % Platelet Count 208 TH/MM3 Mean Platelet Volume 9.1 FL Neutrophils (%) (Auto) 87.9 % Lymphocytes (%) (Auto) 8.0 % Monocytes (%) (Auto) 3.1 % Eosinophils (%) (Auto) 0.6 % Basophils (%) (Auto) 0.4 % Neutrophils # (Auto) 8.8 TH/MM3 Lymphocytes # (Auto) 0.8 TH/MM3 Monocytes # (Auto) 0.3 TH/MM3 Eosinophils # (Auto) 0.1 TH/MM3 Basophils # (Auto) 0.0 TH/MM3 CBC Comment DIFF FINAL Differential Comment Blood Urea Nitrogen 28 MG/DL Creatinine 2.23 MG/DL Random Glucose 152 MG/DL Total Protein 7.6 GM/DL Albumin 3.9 GM/DL Calcium Level 9.6 MG/DL Magnesium Level 2.1 MG/DL Alkaline Phosphatase 73 U/L Aspartate Amino Transf (AST/SGOT) 25 U/L Alanine Aminotransferase (ALT/SGPT) 36 U/L Total Bilirubin 1.3 MG/DL Sodium Level 143 MEQ/L Potassium Level 4.4 MEQ/L Chloride Level 109 MEQ/L Carbon Dioxide Level 23.6 MEQ/L Anion Gap 10 MEQ/L Estimat Glomerular Filtration Rate 30 ML/MIN Total Creatine Kinase 308 U/L Creatine Kinase MB 3.8 NG/ML Troponin I 0.13 NG/ML Exceptions Acute Myocardial Infarction ASA Not Given on Arrival: Already taken by patient MDM Medical Decision Making Medical Screen Exam Complete: Yes Emergency Medical Condition: Yes Medical Record Reviewed: Yes Interpretation(s) EKG reveals atrial fibrillation with RVR. Left anterior fascicular block. Nonspecific ST changes. EKG #2 reveals sinus rhythm with sinus arrhythmia. Inverted T-wave in lead 3. Nonspecific ST depressions. Laboratory Tests Test 07/30/17 15:50 White Blood Count 10.0 TH/MM3 Red Blood Count 4.67 MIL/MM3 Hemoglobin 14.1 GM/DL Hematocrit 41.8 % Mean Corpuscular Volume 89.5 FL Mean Corpuscular Hemoglobin 30.2 PG Mean Corpuscular Hemoglobin Concent 33.7 % Red Cell Distribution Width 13.8 % Platelet Count 208 TH/MM3 Mean Platelet Volume 9.1 FL Neutrophils (%) (Auto) 87.9 % Lymphocytes (%) (Auto) 8.0 % Monocytes (%) (Auto) 3.1 % Eosinophils (%) (Auto) 0.6 % Basophils (%) (Auto) 0.4 % Neutrophils # (Auto) 8.8 TH/MM3 Lymphocytes # (Auto) 0.8 TH/MM3 Monocytes # (Auto) 0.3 TH/MM3 Eosinophils # (Auto) 0.1 TH/MM3 Basophils # (Auto) 0.0 TH/MM3 CBC Comment DIFF FINAL Differential Comment Blood Urea Nitrogen 28 MG/DL Creatinine 2.23 MG/DL Random Glucose 152 MG/DL Total Protein 7.6 GM/DL Albumin 3.9 GM/DL Calcium Level 9.6 MG/DL Magnesium Level 2.1 MG/DL Alkaline Phosphatase 73 U/L Aspartate Amino Transf (AST/SGOT) 25 U/L Alanine Aminotransferase (ALT/SGPT) 36 U/L Total Bilirubin 1.3 MG/DL Sodium Level 143 MEQ/L Potassium Level 4.4 MEQ/L Chloride Level 109 MEQ/L Carbon Dioxide Level 23.6 MEQ/L Anion Gap 10 MEQ/L Estimat Glomerular Filtration Rate 30 ML/MIN Total Creatine Kinase 308 U/L Troponin I 0.13 NG/ML Differential Diagnosis Differential diagnosis includes A. fib with RVR, hypotension, electrolyte abnormality, pulmonary edema, congestive heart failure, cardiomyopathy, ACS. Narrative Course IV was established, labs are drawn and sent, and the patient was placed on cardiac telemetry monitoring and continuous pulse oximetry monitoring. Patient' s manual blood pressure reveal a systolic in the 80s, therefore, the patient was administered 1 L of IV fluids and digoxin 0.5 mg intravenously. Chest x- ray was obtained. EKG was ordered and interpreted. The patient was digoxin, he went into a normal sinus rhythm at approximately 4: 35 PM, repeat EKG revealed sinus rhythm with sinus arrhythmia. The patient are atypical full-sized aspirin today, appears to have new onset atrial fibrillation with RVR which has converted to sinus syndrome. Troponin is positive, patient had a negative stress test in 2017. Most likely troponin is elevated secondary to A. fib with RVR. However, A. fib is new onset patient will need echocardiogram. Therefore, the on-call medical service will be paged for 23 hour observation for echocardiogram and then evaluation of anticoagulation status. Patient is comfortable with this plan of care and disposition. I also discussed the findings with the patient's daughter at bedside. Physician Communication Physician Communication The on-call medical service was paged for 23 hour observation. I discussed the patient Dr. Massey who agrees with 23 hour observation. Diagnosis Primary Impression: New onset of congestive heart failure Additional Impressions: Elevated troponin Acute kidney injury Admitting Information Admitting Physician Requests: Observation Condition: Stable Cristobal Martinez MD Jul 30, 2017 15:36
[2017-07-30 15:45] VITALS: BP 112/58; PULSE 124; RESP 17; O2SAT 98
[2017-07-30] MEDS ORDERED: DIGOXIN 0.5 MG/2 ML VIAL IV PUSH ONE (15:45)
[2017-07-30 16:01] VITALS: BP 110/58; PULSE 132
[2017-07-30] MEDS ORDERED: DILTIAZEM HCL 25 MG/5 ML VIAL IV ONE (16:15)
[2017-07-30] MEDS ORDERED: DILTIAZEM INJ 125 MG in SODIUM CHLORIDE 0.9% INJ 100 ML IV PRN (16:15)
[2017-07-30 16:37] LABS: AUTOMATED NEUTROPHIL # 8.8 TH/MM3 (1.8-7.7); BASOPHIL % 0.4 % (0.0-2.0); EOSINOPHIL # 0.1 TH/MM3 (0-0.4); EOSINOPHIL % 0.6 % (0.0-4.0); HEMATOCRIT 41.8 % (39.0-51.0); HEMOGLOBIN 14.1 GM/DL (13.0-17.0); LYMPHOCYTE # 0.8 TH/MM3 (1.0-4.8); MEAN CELL VOLUME 89.5 FL (80.0-100.0); MEAN CORPUSCULAR HEMOGLOBIN 30.2 PG (27.0-34.0); MEAN CORPUSCULAR HGB CONC 33.7 % (32.0-36.0); MEAN PLATELET VOLUME 9.1 FL (7.0-11.0); MONO % 3.1 % (0.0-8.0); MONOCYTE # 0.3 TH/MM3 (0-0.9); NEUT % 87.9 % (16.0-70.0); PLATELET COUNT 208 TH/MM3 (150-450); RED BLOOD COUNT 4.67 MIL/MM3 (4.50-5.90); RED CELL DISTRIBUTION WIDTH 13.8 % (11.6-17.2)
[2017-07-30 16:51] LABS: ALBUMIN 3.9 GM/DL (3.4-5.0); AST (GOT) 25 U/L (15-37); BICARBONATE 23.6 MEQ/L (21.0-32.0); BLOOD UREA NITROGEN 28 MG/DL (7-18); CALCIUM 9.6 MG/DL (8.5-10.1); CHLORIDE 109 MEQ/L (98-107); CREATININE 2.23 MG/DL (0.60-1.30); GLOMERULAR FILTRATION RATE 30 ML/MIN (>89); GLUCOSE,RANDOM 152 MG/DL (74-106); MAGNESIUM 2.1 MG/DL (1.5-2.5); SODIUM (NA) 143 MEQ/L (136-145)
[2017-07-30 16:57] LABS: ALKALINE PHOSPHATASE 73 U/L (45-117); ALT (GPT) 36 U/L (12-78); TOTAL BILIRUBIN ADULT 1.3 MG/DL (0.2-1.0); TOTAL PROTEIN 7.6 GM/DL (6.4-8.2); TROPONIN I 0.13 NG/ML (0.02-0.05)
--- NOTE | 2017-07-30 17:15 | RADRPT ---
EXAM DATE/TIME: 07/30/2017 15:41 [facility] COMPARISON: CHEST SINGLE AP, January 18, 2017, 16:46. INDICATIONS : Palpitations, short of breath. MEDICAL HISTORY : Cardiovascular disease. SURGICAL HISTORY : None. ENCOUNTER: Initial ACUITY: 1 day PAIN SCORE: 0/10 LOCATION: Bilateral chest FINDINGS: A single view of the chest demonstrates the lungs to be symmetrically aerated without evidence of mas s, infiltrate or effusion. The cardiomediastinal contours are unremarkable. Osseous structures are intact. CONCLUSION: 1. No acute abnormality or significant interval change. Hollis Chua MD on July 30, 2017 at 17:13 Board Certified Radiologist. This report was verified electronically.
[2017-07-30 17:30] VITALS: BP 117/66; PULSE 60; RESP 21; O2SAT 99
[2017-07-30] MEDS ORDERED: SODIUM CHLORIDE 0.9% FLUSH 10 ML FLUSH IV FLUSH PRN (17:45)
[2017-07-30] MEDS ORDERED: NALOXONE HCL 0.4 MG/ML AMP IV PUSH PRN (17:45)
[2017-07-30] MEDS ORDERED: SODIUM CHLOR 0.9% 1000 ML INJ 1,000 ML IV SCH (18:00)
--- NOTE | 2017-07-30 18:05 | HHI.HP ---
HPI Service [facility] Primary Care Physician Mimi Puente MD Admission Diagnosis new onset atrial fibrillation with RVR, elevated troponin, acute kid Diagnoses: Travel History International Travel<30 Days: No Contact w/Intl Traveler <30 Da: No Traveled to Known Affected Are: No History of Present Illness History of patient, your physician communication, and review of medical records. 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 During that work, he started feeling severe nausea and dizziness. He denies having syncope. He also was having shortness of breath, with feeling of palpitations. Denies any chest pains or tightness. However admits to left thumb and second finger numbness during the episodes. He reports that he rested when the episodes started and did not really relieve the symptoms. He then also restarted to see if he could continue with his work and the symptoms Coming back. He tried that for about an hour and even rest and at the air conditioning in his car and did not work. He finally then told his boss called the emergency services [place] the [employer]. In the emergency room, patient was noted to be in A. fib with RVR. He was given digoxin 0.5 mg IV 1 dose in ER after which the symptoms subsided. Patient also reports that his initial dizziness and nausea went away while on the ambulance after he was administered oxygen. On review of systems, patient denies vitamins every symptoms except for the fact that he was sick with bronchitis for the past 1 month or so. He was prescribed Augmentin but he was not able to take it more than 2 doses because of side effects. He basically controlled his bronchitis with cough syrup and codeine. He states that all the symptoms were of bronchitis resolved about a week ago. He also reports of diarrhea on Saturday the . He had about 5 episodes of diarrhea which self limited by now. In the emergency room, patient's workup revealed acute renal failure likely secondary to dehydration. He was given 1 L normal saline bolus as well. Apart from the above, patient denies any fever. Denies any blood in his stool or in his urine. Denies blood from anywhere else. He does report of history of cerebral aneurysm which was stented and then later coiled back in 2007. He is on an aspirin at home for this. 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 SKIN: No rashes, ecchymoses or lesions. Cool and dry. HEAD: Atraumatic. Normocephalic. No temporal or scalp tenderness. EYES: No scleral icterus. No injection or drainage. ENT: Nose without bleeding, purulent drainage or septal hematoma. Airway patent. NECK: Trachea midline. No JVD CARDIOVASCULAR: Regular rate and rhythm without murmurs, gallops, or rubs. RESPIRATORY: Clear to auscultation. Breath sounds equal bilaterally. No wheezes , rales, or rhonchi. GASTROINTESTINAL: Abdomen soft, non-tender, nondistended. No guarding. MUSCULOSKELETAL: Extremities without clubbing, cyanosis, or edema. No calf tenderness. NEUROLOGICAL: Awake and alert. Motor and sensory grossly within normal limits. Normal speech. Laboratory Laboratory Tests Test 07/30/17 15:50 White Blood Count 10.0 Red Blood Count 4.67 Hemoglobin 14.1 Hematocrit 41.8 Mean Corpuscular Volume 89.5 Mean Corpuscular Hemoglobin 30.2 Mean Corpuscular Hemoglobin Concent 33.7 Red Cell Distribution Width 13.8 Platelet Count 208 Mean Platelet Volume 9.1 Neutrophils (%) (Auto) 87.9 Lymphocytes (%) (Auto) 8.0 Monocytes (%) (Auto) 3.1 Eosinophils (%) (Auto) 0.6 Basophils (%) (Auto) 0.4 Neutrophils # (Auto) 8.8 Lymphocytes # (Auto) 0.8 Monocytes # (Auto) 0.3 Eosinophils # (Auto) 0.1 Basophils # (Auto) 0.0 CBC Comment DIFF FINAL Differential Comment Blood Urea Nitrogen 28 Creatinine 2.23 Random Glucose 152 Total Protein 7.6 Albumin 3.9 Calcium Level 9.6 Magnesium Level 2.1 Alkaline Phosphatase 73 Aspartate Amino Transf (AST/SGOT) 25 Alanine Aminotransferase (ALT/SGPT) 36 Total Bilirubin 1.3 Sodium Level 143 Potassium Level 4.4 Chloride Level 109 Carbon Dioxide Level 23.6 Anion Gap 10 Estimat Glomerular Filtration Rate 30 Total Creatine Kinase 308 Creatine Kinase MB 3.8 Troponin I 0.13 Result Diagram: 07/30/17 1550 07/30/17 1550 Imaging Last 48 hours Impressions Chest X-Ray 07/30/17 1526 Signed Impressions: Service Date/Time: Sunday, July 30, 2017 15:41 - CONCLUSION: 1. No acute abnormality or significant interval change. MD [place] VTE Risk Assessment [place] VTE Risk Assessment: Mod/High Risk (score >= 2) Caprini Risk Assessment Model Point Value = 1 Point Value = 2 Point Value = 3 Point Value = 5 Age 41-60 Minor surgery BMI > 25 kg/m2 Swollen legs Varicose veins or History of unexplained or recurrent spontaneous Oral contraceptives or hormone replacement Sepsis (< 1 month) Serious lung disease, including pneumonia (< 1 month) Abnormal pulmonary function Acute myocardial infarction Congestive heart failure (< 1 month) History of inflammatory bowel disease Medical patient at bed rest Age 61-74 Arthroscopic surgery Major open surgery (> 45 min) Laparoscopic surgery (> 45 min) Malignancy Confined to bed (> 72 hours) Immobilizing plaster cast Central venous access Age >= 75 History of VTE Family history of VTE Factor V Leiden Prothrombin [id number] Lupus anticoagulant Anticardiolipin antibodies Elevated serum homocysteine Heparin-induced thrombocytopenia Other congenital or acquired thrombophilia Stroke (< 1 month) Elective arthroplasty Hip, pelvis, or leg fracture Acute spinal cord injury (< 1 month) Prophylaxis Regimen Total Risk Factor Score Risk Level Prophylaxis Regimen 0-1 Low Early ambulation 2 Moderate Order ONE of the following: *Sequential Compression Device (SCD) *Heparin 5000 units SQ BID 3-4 Higher Order ONE of the following medications: *Heparin 5000 units SQ TID *Enoxaparin/Lovenox 40 mg SQ daily (WT < 150 kg, CrCl > 30 mL/min) *Enoxaparin/Lovenox 30 mg SQ daily (WT < 150 kg, CrCl > 10-29 mL/min) *Enoxaparin/Lovenox 30 mg SQ BID (WT < 150 kg, CrCl > 30 mL/min) AND/OR *Sequential Compression Device (SCD) 5 or more Highest Order ONE of the following medications: *Heparin 5000 units SQ TID (Preferred with Epidurals) *Enoxaparin/Lovenox 40 mg SQ daily (WT < 150 kg, CrCl > 30 mL/min) *Enoxaparin/Lovenox 30 mg SQ daily (WT < 150 kg, CrCl > 10-29 mL/min) *Enoxaparin/Lovenox 30 mg SQ BID (WT < 150 kg, CrCl > 30 mL/min) AND *Sequential Compression Device (SCD) Assessment and Plan Assessment and Plan Impression: New onset A. fib A. fib with RVR. Resolved. Dehydration Acute renal failure secondary to above Elevated troponin. Likely rate related. Patient had stress test done in his recent chest pain center admission. Hypertension Recent bronchitis History cerebral aneurysm. Status post stenting, followed by coiling around 2007 Plan: Serial cardiac enzymes and EKGs. IV hydration with normal saline at 84 cc per hour. We'll follow renal function. At present, patient's dehydration heart rate is controlled. Anticoagulation to be decided based on echo findings. Patient with history of cerebral aneurysm. However no intracranial hemorrhage. Cardiology consult. Resume home meds for hypertension. However would hold diuretics. Hold nephrotoxic meds. Will resume valsartan once creatinine is less than 2.5. DVT prophylaxis with heparin. Discussed Condition With Patient, ER physician, patient's family at the bedside Physician Certification 2 Midnight Certification Type: Admission for Inpatient Services Order for Inpatient Services The services are ordered in accordance with Medicare regulations or non- Medicare payer requirements, as applicable. In the case of services not specified as inpatient-only, they are appropriately provided as inpatient services in accordance with the 2-midnight benchmark. Estimated LOS (days): 2 days is the estimated time the patient will need to remain in the hospital, assuming treatment plan goals are met and no additional complications. Post-Hospital Plan: Home Marilou Massey MD Jul 30, 2017 18:05
[2017-07-30] MEDS ORDERED: HEPARIN SODIUM - IV 10,000 UNITS/10 ML VIAL IV PUSH ONE (20:30)
[2017-07-30 20:31] VITALS: BP 118/61; PULSE 58; RESP 18; TEMP 98.2; O2SAT 96
[2017-07-30] MEDS: SODIUM CHLOR 0.9% 1000 ML INJ 1,000 ML IV SCH (20:45)
[2017-07-30] MEDS: TAMSULOSIN HCL 0.4 MG CAP PO SCH (20:45)
[2017-07-30] MEDS: SODIUM CHLORIDE 0.9% FLUSH 10 ML FLUSH IV FLUSH SCH (21:00)
--- NOTE | 2017-07-30 21:42 | MB ---
cc: MAUREEN WAITE M.D. DATE OF CONSULTATION 07/30/2017 REASON FOR CONSULTATION Atrial fibrillation and elevated cardiac enzymes. HISTORY OF THE PRESENT ILLNESS Mr. 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 He says they started around 08:30 this morning and then finally persisted throughout the morning and finally was taken to the emergency room around noon. He denies any syncopal episodes or any chest discomfort. He says he had some sweats and shortness of breath associated with these symptoms. He has not had anything like this before. He was seen in the emergency room back in December for a reported chest discomfort although he tells me that it was not in his chest it was below his left ribcage in his upper abdomen and underwent stress testing at that time which was normal. Subsequently found to have some diverticulitis. He has had been doing well since that time until today. He has been taking his medication as directed and his blood pressure has been well controlled. MEDICATIONS His current medications: 1. The patient received digoxin 0.5 milligrams IV times one in the emergency room at 15:45 today. 2. He is on Protonix 40 milligrams daily. 3. Lactulose 200 milligrams daily. 4. Flomax 0.4 milligrams bedtime. 5. Intravenous saline at 85 ml per hour. 6. Aspirin 325 milligrams daily. At home he was takin. Diclofenac sodium once a day. 2. Diovan HCT 160/12.5 milligrams daily. In addition to his aspirin, labetalol and tamsulosin. PAST MEDICAL HISTORY As mentioned includes: 1. Bronchitis. 2. Cerebral aneurysm. 3. Hypertension. 4. Cataract. 5. Osteoarthritis. He denies a history of myocardial infarction, heart failure, stroke, TIA, thyroid, liver or kidney disease. PAST SURGICAL HISTORY The past surgical history includes: 1. Cerebral aneurysm coiling in 2007. 2. Cataract on the left. 3. Total knee on the left. ALLERGIES None known. MRI PRECAUTION FOR HIS PREVIOUS STENT AND CEREBRAL ANEURYSM COILING. SOCIAL HISTORY The patient was a cigarette smoker but quit 30 years ago. Consumes two to three beers a week. No illicit drug. He is , lives with his . He does lot of exertion and walking at work but no regular exercise. REVIEW OF SYSTEMS Denies lower extremity edema or claudication. Denies palpitations or syncopal episodes. Denies any exertional or resting chest discomfort. Denies orthopnea or PND type symptoms. Has had no bleeding or clotting disorders. And except for that mentioned in the HPI his complete 12-point review of systems otherwise negative. PHYSICAL EXAMINATION GENERAL: Reveals an obese white male lying in bed in no distress at this time. VITAL SIGNS: Blood pressure is 117/66 mmHg, heart rate is 60 and regular, respiratory rate 21, temperature is 97.9, oxygen saturation 99% on 2 liters nasal cannula. HEENT: Head is normocephalic and atraumatic. Pupils equal, round and react to light. Sclerae anicteric. Extraocular muscles intact. NECK: The neck is supple. There is no adenopathy. No jugular venous distention at 45 degrees. Carotid upstrokes are normal. There are no bruits. Thyroid exam is normal. LUNGS: Clear. HEART: PMI is not displaced. S1-S2 are normal. No murmurs, gallops, clicks or rubs. ABDOMEN: Obese. Bowel sounds present, soft, nontender. No hepatosplenomegaly. There is a small ventral wall hernia noted. No masses. No bruits. EXTREMITIES: No cyanosis, clubbing or edema. Perfusion is adequate. Pulses are intact in the upper and lower extremities. There are no femoral bruits. NEUROLOGIC: Exam is nonfocal. EKG initially from the emergency room on arrival showed an atrial fibrillation with a rapid ventricular response of 146 beats per minute. Left axis deviation, consider left anterior fascicular block, poor R-wave progression. Abnormal EKG. Repeat EKG at 12:12 a.m. after a dose of intravenous digoxin he was in sinus rhythm with left anterior fascicular block, nonspecific anterior septal T-wave abnormalities. Abnormal EKG. Comparing that EKG to older EKGs available from December there is no significant change. Chest x-ray from arrival today showed no acute abnormality or significant interval change. He did have a CT angiography of the chest, back on January 18, 2017 that was negative for pulmonary embolism and no acute findings. LABORATORY DATA CBC white count 10.0, hemoglobin 14.1, hematocrit 41.6, platelet count 208,000. Other labs includes his chemistries, his electrolytes, sodium 143, potassium 4.4, chloride 109, CO2 23.6, BUN 28, creatinine 2.23, glucose 152, calcium 9.6, magnesium 2.1, AST 25. CPK total CPK 308. CPK-MB, CK 2 is 3.8. Troponin I 0.13. Repeat cardiac enzymes are pending. Back on his previous visit, his BUN and creatinine on January 18, 2017 were 23 and 1.04, respectively, and his cardiac enzymes were all negative at that time. IMPRESSION 1. Paroxysmal atrial fibrillation currently in sinus rhythm. 2. Lightheadedness secondary to #1. 3. Hypertensive heart disease. 4. Elevated cardiac markers possible non-ST elevation myocardial infarction. 5. Acute renal insufficiency of uncertain etiology. 6. Obesity. RECOMMENDATIONS The patient has been admitted and will be observed on telemetry. I agree with intravenous fluid hydration over the next 24-48 hours to see if his renal function improves. Abdominal ultrasound ordered to evaluate his kidneys, bladder and ureters to exclude any obstructive disease. I discussed with him the importance of avoiding nonsteroidal anti-inflammatory drugs. He is currently stable and asymptomatic from a cardiac standpoint. Check fasting lipids and continue to follow cardiac enzymes overnight tonight. He will continue on aspirin 81 mg daily. We did discuss the further workup may require cardiac catheterization and intravenous contrast which I would try to avoid until his renal function has improved. I will ask nephrology to see him as well anticipating that he might need cardiac catheterization during this hospitalization. Intravenous heparin will be started as well. I have discussed all the plans in detail with the patient, his and daughter here at bedside. I will follow him with you with further recommendations as they are required. Thank you for allowing us to participate in the care of this patient. MD DIONNE Park/CRISTHIAN /8:04 PM /9:02 PM TOREY
[2017-07-30 21:53] LABS: HEMATOCRIT 40.1 % (39.0-51.0); HEMOGLOBIN 13.6 GM/DL (13.0-17.0); MEAN CELL VOLUME 89.3 FL (80.0-100.0); MEAN CORPUSCULAR HEMOGLOBIN 30.2 PG (27.0-34.0); MEAN CORPUSCULAR HGB CONC 33.8 % (32.0-36.0); MEAN PLATELET VOLUME 8.7 FL (7.0-11.0); PLATELET COUNT 171 TH/MM3 (150-450); RED BLOOD COUNT 4.49 MIL/MM3 (4.50-5.90); RED CELL DISTRIBUTION WIDTH 14.1 % (11.6-17.2); WHITE BLOOD COUNT 6.5 TH/MM3 (4.0-11.0)
[2017-07-30] MEDS ORDERED: HEPARIN SODIUM - SQ 10,000 UNITS/ML VIAL SQ SCH (22:00)
--- NOTE | 2017-07-30 22:01 | RADRPT ---
EXAM DATE/TIME: 07/30/2017 20:57 [facility] COMPARISON: No previous studies available for comparison. INDICATIONS : Obstructive uropathy. MEDICAL HISTORY : Renal insufficiency. Hypertension. Benign prostatic hyperplasia, (BPH) Cerebrovascular accident. Afib . SURGICAL HISTORY : Tonsillectomy. Cataract removal. Bilateral knee surgery. Cerebral coiling. ENCOUNTER: Initial ACUITY: 1 day PAIN SCORE: 0/10 LOCATION: Bilateral flank MEASUREMENTS: RIGHT KIDNEY: 11.8 x 5.7 x 5.9 cm LEFT KIDNEY: 11.4 x 5.8 x 6.1 cm FINDINGS: RIGHT KIDNEY: Renal cortex is normal in thickness and echotexture. No hydronephrosis, stone, or mass. There is a tiny benign cyst in the midpole measuring 1 cm. LEFT KIDNEY: Renal cortex is normal in thickness and echotexture. No hydronephrosis, stone, or mass. BLADDER: Within normal limits given the degree of distension. The prostate measures 4.6 x 3.3 cm. CONCLUSION: 1. No evidence of hydronephrosis. 2. 1 cm benign-appearing right renal cyst. Germán Mosquera MD on July 30, 2017 at 21:58 Board Certified Radiologist. This report was verified electronically.
[2017-07-30 22:05] LABS: INTERNATIONAL NORMALIZED RATIO 1.2 RATIO; PROTHROMBIN TIME - PATIENT 11.8 SEC (9.8-11.6)
[2017-07-30 22:30] VITALS: PULSE 60
[2017-07-30 22:30] LABS: HEMOGLOBIN A1C 5.4 % (4.3-6.0)
[2017-07-30] MEDS: METOPROLOL TARTRATE 50 MG TAB PO SCH (23:03)
[2017-07-30] MEDS: ATORVASTATIN 40 MG TAB PO SCH (23:03)
[2017-07-30] MEDS: HEPARIN-D5W 25,000 U/250 ML 250 ML IV PRN (23:05)
[2017-07-31] VITALS (7 sets, daily range): BP systolic 98–150; BP diastolic 56–99; PULSE 50–82; RESP 18–20; TEMP 97.1–98.5; O2SAT 95–100
[2017-07-31 00:02] LABS: CHOLESTEROL/ HDL RATIO 4.1 RATIO; HDL CHOLESTEROL 37.5 MG/DL (40.0-60.0); TROPONIN I 0.24 NG/ML (0.02-0.05)
[2017-07-31] MEDS ORDERED: HEPARIN SODIUM - IV 10,000 UNITS/10 ML VIAL IV PUSH PRN (02:30)
[2017-07-31 04:25] LABS: AUTOMATED NEUTROPHIL # 4.2 TH/MM3 (1.8-7.7); BASOPHIL % 0.5 % (0.0-2.0); EOSINOPHIL # 0.2 TH/MM3 (0-0.4); EOSINOPHIL % 2.5 % (0.0-4.0); HEMOGLOBIN 12.8 GM/DL (13.0-17.0); LYMPH % 26.2 % (9.0-44.0); LYMPHOCYTE # 1.9 TH/MM3 (1.0-4.8); MEAN CELL VOLUME 89.3 FL (80.0-100.0); MEAN CORPUSCULAR HEMOGLOBIN 30.8 PG (27.0-34.0); MEAN CORPUSCULAR HGB CONC 34.5 % (32.0-36.0); MEAN PLATELET VOLUME 8.9 FL (7.0-11.0); MONOCYTE # 0.9 TH/MM3 (0-0.9); NEUT % 58.8 % (16.0-70.0); PLATELET COUNT 161 TH/MM3 (150-450); RED BLOOD COUNT 4.15 MIL/MM3 (4.50-5.90); RED CELL DISTRIBUTION WIDTH 13.9 % (11.6-17.2); WHITE BLOOD COUNT 7.2 TH/MM3 (4.0-11.0)
[2017-07-31] MEDS: HEPARIN SODIUM - IV 10,000 UNITS/10 ML VIAL IV PUSH PRN ×2 (05:09→20:59)
[2017-07-31 05:15] LABS: BICARBONATE 26.8 MEQ/L (21.0-32.0); CALCIUM 8.8 MG/DL (8.5-10.1); CREATININE 1.09 MG/DL (0.60-1.30); TROPONIN I 0.24 NG/ML (0.02-0.05)
[2017-07-31] MEDS: METOPROLOL TARTRATE 50 MG TAB PO SCH ×2 (08:32→20:55)
[2017-07-31] MEDS: ATORVASTATIN 40 MG TAB PO SCH (08:32)
[2017-07-31] MEDS: PANTOPRAZOLE SOD 40 MG DELAYED RELEASE TAB PO SCH (08:32)
[2017-07-31] MEDS: ASPIRIN 81 MG CHEW TAB PO SCH (08:33)
[2017-07-31] MEDS: SODIUM CHLOR 0.9% 1000 ML INJ 1,000 ML IV SCH ×2 (08:33→20:53)
[2017-07-31] MEDS: SODIUM CHLORIDE 0.9% FLUSH 10 ML FLUSH IV FLUSH SCH ×2 (08:34→20:53)
[2017-07-31] MEDS ORDERED: VALSARTAN 80 MG TAB PO SCH (09:00)
[2017-07-31] MEDS ORDERED: LABETALOL HCL 200 MG TAB PO SCH (09:00)
[2017-07-31] MEDS ORDERED: ASPIRIN 325 MG TAB PO SCH ×2 (09:00→09:15)
--- NOTE | 2017-07-31 09:12 | PD.CARD.PN ---
Subjective Subjective Remarks Feeling well. No recurrent afib. Denies CP or SOB. Objective Medications Current Medications Medications (Trade) Dose Ordered Sig/Inga Route Start Time Stop Time Status Last Admin (NS Flush) 2 ml UNSCH PRN IV FLUSH 07/30/17 17:45 (NS Flush) 2 ml BID IV FLUSH 07/30/17 21:00 (Narcan Inj) 0.4 mg UNSCH PRN IV PUSH 07/30/17 17:45 (Protonix) 40 mg DAILY PO 07/31/17 09:00 07/31/17 08:32 Sodium Chloride 1,000 ml @ 84 mls/hr [id number] IV 07/30/17 20:00 07/31/17 08:33 (Flomax) 0.4 mg HS PO 07/30/17 21:00 07/30/17 20:45 (Heparin Inj) 5,000 units UNSCH PRN IV PUSH 07/31/17 02:30 (Heparin Inj) 2,500 units UNSCH PRN IV PUSH 07/31/17 02:30 07/31/17 05:09 Heparin Sodium/ Dextrose 250 ml @ 10 mls/hr TITRATE PRN IV 07/30/17 20:30 07/30/17 23:05 (Aspirin Chew) 81 mg DAILY PO 07/31/17 09:00 07/31/17 08:33 (Lipitor) 40 mg DAILY PO 07/30/17 20:30 07/31/17 08:32 (Lopressor) 50 mg Q12HR PO 07/30/17 21:15 07/31/17 08:32 (Diovan) 80 mg DAILY PO 07/31/17 09:00 Vital Signs / I&O Vital Signs Date Time Temp Pulse Resp B/P (MAP) Pulse Ox O2 Delivery O2 Flow Rate FiO2 07/31/17 08:08 97.8 50 20 128/72 (90) 100 07/31/17 04:13 53 07/31/17 03:00 97.1 82 19 130/99 (109) 97 07/31/17 00:42 97.8 54 18 98/56 (70) 97 07/30/17 22:30 60 07/30/17 20:31 98.2 58 18 118/61 (80) 96 07/30/17 18:58 2/6/18 17:30 60 21 117/66 (83) 99 Nasal Cannula 2.00 07/30/17 16:01 132 110/58 (75) 07/30/17 15:45 124 17 112/58 (76) 98 Nasal Cannula 2.00 07/30/17 15:20 97.9 150 20 80/64 (69) 96 07/30/17 15:20 145 99 Nasal Cannula 2.00 I/O 07/30/17 07/30/17 07/30/17 07/31/17 07/31/17 07/31/17 06:59 14:59 22:59 06:59 14:59 22:59 Intake Total 2000 ml 960 ml Balance 2000 ml 960 ml Intake Oral 960 ml IV Total 2000 ml # Voids 3 # Bowel Movements 0 Physical Exam VSS, afebrile. No JVD Lungs CTA Heart: RRR, no murmur. Ext: No C/C/E Neuro; non-focal. Laboratory Laboratory Tests Test 07/30/17 15:50 07/30/17 21:27 07/30/17 22:58 07/31/17 03:36 White Blood Count 10.0 TH/MM3 6.5 TH/MM3 7.2 TH/MM3 Red Blood Count 4.67 MIL/MM3 4.49 MIL/MM3 4.15 MIL/MM3 Hemoglobin 14.1 GM/DL 13.6 GM/DL 12.8 GM/DL Hematocrit 41.8 % 40.1 % 37.0 % Mean Corpuscular Volume 89.5 FL 89.3 FL 89.3 FL Mean Corpuscular Hemoglobin 30.2 PG 30.2 PG 30.8 PG Mean Corpuscular Hemoglobin Concent 33.7 % 33.8 % 34.5 % Red Cell Distribution Width 13.8 % 14.1 % 13.9 % Platelet Count 208 TH/MM3 171 TH/MM3 161 TH/MM3 Mean Platelet Volume 9.1 FL 8.7 FL 8.9 FL Neutrophils (%) (Auto) 87.9 % 58.8 % Lymphocytes (%) (Auto) 8.0 % 26.2 % Monocytes (%) (Auto) 3.1 % 12.0 % Eosinophils (%) (Auto) 0.6 % 2.5 % Basophils (%) (Auto) 0.4 % 0.5 % Neutrophils # (Auto) 8.8 TH/MM3 4.2 TH/MM3 Lymphocytes # (Auto) 0.8 TH/MM3 1.9 TH/MM3 Monocytes # (Auto) 0.3 TH/MM3 0.9 TH/MM3 Eosinophils # (Auto) 0.1 TH/MM3 0.2 TH/MM3 Basophils # (Auto) 0.0 TH/MM3 0.0 TH/MM3 CBC Comment DIFF FINAL DIFF FINAL Differential Comment Blood Urea Nitrogen 28 MG/DL 23 MG/DL Creatinine 2.23 MG/DL 1.09 MG/DL Random Glucose 152 MG/DL 96 MG/DL Total Protein 7.6 GM/DL Albumin 3.9 GM/DL Calcium Level 9.6 MG/DL 8.8 MG/DL Magnesium Level 2.1 MG/DL Alkaline Phosphatase 73 U/L Aspartate Amino Transf (AST/SGOT) 25 U/L Alanine Aminotransferase (ALT/SGPT) 36 U/L Total Bilirubin 1.3 MG/DL Sodium Level 143 MEQ/L 143 MEQ/L Potassium Level 4.4 MEQ/L 3.5 MEQ/L Chloride Level 109 MEQ/L 110 MEQ/L Carbon Dioxide Level 23.6 MEQ/L 26.8 MEQ/L Anion Gap 10 MEQ/L 6 MEQ/L Estimat Glomerular Filtration Rate 30 ML/MIN 68 ML/MIN Hemoglobin A1c 5.4 % Total Creatine Kinase 308 U/L 226 U/L 184 U/L Creatine Kinase MB 3.8 NG/ML Troponin I 0.13 NG/ML 0.24 NG/ML 0.24 NG/ML B-Type Natriuretic Peptide 220 PG/ML Prothrombin Time 11.8 SEC Prothromb Time International Ratio 1.2 RATIO Activated Partial Thromboplast Time 23.5 SEC 38.5 SEC Triglycerides Level 144 MG/DL Cholesterol Level 154 MG/DL LDL Cholesterol 88 MG/DL HDL Cholesterol 37.5 MG/DL Cholesterol/HDL Ratio 4.10 RATIO Imaging Last 24 hours Impressions Chest X-Ray 07/30/17 1526 Signed Impressions: Service Date/Time: Sunday, July 30, 2017 15:41 - CONCLUSION: 1. No acute abnormality or significant interval change. Hollis Chua MD Assessment and Plan Problem List: (1) Paroxysmal atrial fibrillation ICD Codes: I48.0 - Paroxysmal atrial fibrillation (2) Elevated troponin ICD Codes: R74.8 - Abnormal levels of other serum enzymes Status: Acute (3) Acute kidney injury ICD Codes: N17.9 - Acute kidney failure, unspecified Status: Acute (4) Obesity ICD Codes: E66.9 - Obesity, unspecified Assessment and Plan Remains in NSR. Renal function improving. Continue IVF hydration. Awaiting nephrology evaluation. Discussed further workup of elevated cardiac markers. I have recommended proceeding to cardiac cath tomorrow. Alternative and conservative management also discussed. Fritz test acceptable in right hand. Will attempt radial approach if possible. Indications, benefits, risks of cardiac beti explained and accepted. Risks including acute MA, VT/VF, , arterial injury, bleeding, CVA, renal failure , and possible need for urgent surgery understood. NPO after midnight tonight. Orders written, consents to be signed. Discussed with hospitalist, patient and family at bedside. Code Status Full Holger Charles MD Jul 31, 2017 09:12
[2017-07-31] MEDS ORDERED: MIDAZOLAM HCL 2 MG/2 ML VIAL IV PUSH SCH (09:15)
[2017-07-31] MEDS ORDERED: diphenhydrAMINE HCL 50 MG/ML VIAL IV PUSH SCH (09:15)
--- NOTE | 2017-07-31 10:59 | EKG ---
Date Performed: 07/31/2017 Time Performed: 04:08:44 PTAGE: 66 years EKG: Sinus bradycardia with PVC(s). Possible left anterior fascicular block Anterior ST-T change s are nonspecific Borderline ECG NO PREVIOUS TRACING DOCTOR: Kenn Wiggins Interpretating Date/Time 07/31/2017 10:56:25
--- NOTE | 2017-07-31 11:28 | HHI.PR ---
Subjective Remarks Follow up for Afib, NSTEMI. Patient is currently doing well. No chest pain, SOB , fever, chills. Objective Vitals Vital Signs Date Time Temp Pulse Resp B/P (MAP) Pulse Ox O2 Delivery O2 Flow Rate FiO2 07/31/17 08:08 97.8 50 20 128/72 (90) 100 07/31/17 04:13 53 07/31/17 03:00 97.1 82 19 130/99 (109) 97 07/31/17 00:42 97.8 54 18 98/56 (70) 97 07/30/17 22:30 60 07/30/17 20:31 98.2 58 18 118/61 (80) 96 07/30/17 18:58 07/30/17 17:30 60 21 117/66 (83) 99 Nasal Cannula 2.00 07/30/17 16:01 132 110/58 (75) 07/30/17 15:45 124 17 112/58 (76) 98 Nasal Cannula 2.00 07/30/17 15:20 97.9 150 20 80/64 (69) 96 07/30/17 15:20 145 99 Nasal Cannula 2.00 I/O 07/30/17 07/30/17 07/30/17 07/31/17 07/31/17 07/31/17 07:00 15:00 23:00 07:00 15:00 23:00 Intake Total 2000 ml 960 ml Balance 2000 ml 960 ml Intake Oral 960 ml IV Total 2000 ml # Voids 3 # Bowel Movements 0 Result Diagram: 07/31/17 0336 07/31/17 0336 Imaging Last Impressions Chest X-Ray 07/30/17 1526 Signed Impressions: Service Date/Time: Sunday, July 30, 2017 15:41 - CONCLUSION: 1. No acute abnormality or significant interval change. Hollis Chua MD Renal Ultrasound 07/30/17 0000 Signed Impressions: Service Date/Time: Sunday, July 30, 2017 20:57 - CONCLUSION: 1. No evidence of hydronephrosis. 2. 1 cm benign-appearing right renal cyst. Germán Mosquera MD Objective Remarks GENERAL: AOX3, NAD. SKIN: Warm and dry. HEAD: Normocephalic. EYES: No scleral icterus. No injection or drainage. NECK: Supple, trachea midline. No JVD or lymphadenopathy. CARDIOVASCULAR: Regular rate and rhythm without murmurs, gallops, or rubs. RESPIRATORY: Breath sounds equal bilaterally. No accessory muscle use. GASTROINTESTINAL: Abdomen soft, non-tender, nondistended. MUSCULOSKELETAL: No cyanosis, or edema. BACK: Nontender without obvious deformity. No CVA tenderness. Procedures None. A/P Problem List: (1) Atrial fibrillation ICD Code: I48.91 - Unspecified atrial fibrillation (2) NSTEMI (non-ST elevated myocardial infarction) ICD Code: I21.4 - Non-ST elevation (NSTEMI) myocardial infarction Assessment and Plan Mr. Mead is a pleasant 66 year old male with a history of HTN who was admitted to the hospital due to dizziness, lightheadedness, diaphoresis. He did not have any chest pain. He was found to have Afib and elevated troponin. Cardiology was consulted. - New onset Atrial fibrillation - [id number] score 1 (HTN). - Cardiology on board and appropriately recommends Cardiac cath scheduled for 08/01/2017. - Continue Metoprolol 50mg BID. - Continue Aspirin 81mg Qday. - Patient is currently on heparin drip as well due to elevated troponin. - Will check TSH. - NSTEMI - Although patient did not have chest pain, his diaphoresis is concerning for ACS. - Afib could be a result of ischemic event but elevated troponin could be from Afib as well as MAYELA as well. - Continue ASA, BB, Lipitor 40mg Qday. - Cath tomorrow. NPO midnight except meds. - Acute kidney injury - Creatinine 2.24 --> 1.09. Possibly due volume depletion. Avoid nephrotoxins. - Hypertension - Continue Valsartan 80mg Qday. - BPH - cont. Tamsulosin 0.4mg QHS. - GERD - continue Protonix 40mg Qday. Full code. Heparin drip. Discharge plan: If cath negative, potential discharge on 08/01/2017. Discussed at length with Cardiology. Gianfranco Brooke DO Jul 31, 2017 11:28 am
--- NOTE | 2017-07-31 12:57 | EKG ---
Date Performed: 07/30/2017 Time Performed: 16:37:38 PTAGE: 66 years EKG: Sinus rhythm WITH MARKED RHYTHM IRREGULARITY, POSSIBLE NON-CONDUCTED PAC, SA BLOCK, AV BLOCK, OR SINUS PAUSE DEONDRE BUFFY CONSISTENT WITH PULMONARY DISEASE LEFT ANTERIOR FASCICULAR BLOCK MINIMAL ST DEPRESSION ABNORMAL E CG INTERPRETATION BASED ON A DEFAULT AGE OF 42 YEARS NO PREVIOUS TRACING DOCTOR: Kenn Wiggins Interpretating Date/Time 07/31/2017 12:50:27
--- NOTE | 2017-07-31 12:59 | EKG ---
Date Performed: 07/30/2017 Time Performed: 15:23:27 PTAGE: 66 years EKG: ATRIAL FIBRILLATION WITH RAPID VENTRICULAR RESPONSE PATTERN CONSISTENT WITH PULMONARY DISEA SE LEFT ANTERIOR FASCICULAR BLOCK MODERATE ST DEPRESSION ABNORMAL ECG NO PREVIOUS TRACING DOCTOR: Kenn Wiggins Interpretating Date/Time 07/31/2017 12:51:58
--- NOTE | 2017-07-31 18:20 | PD.CONS ---
HPI Consult Requested By Reason for Consult Acute renal insufficiency. Primary Care Physician Mimi Puente MD History of Present Illness This patient is a 66-year-old male with a history of hypertension and apparently no previous history of chronic kidney disease. Of interest the patient has been taking Diovan as well as diclofenac on a daily basis for some time now. Prior to diclofenac he was on meloxicam. He does suffer from chronic degenerative joint disease. 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 On presentation to the emergency room on day of admission he was noted to have atrial fibrillation with a rapid ventricular rate. Last Saturday he was also having diarrhea multiple times. Creatinine level on day of admission was 2.23. Previous creatinine levels have been within normal range. He was hydrated overnight and his renal indices have improved significantly. The diclofenac was discontinued. The patient is being considered for cardiac catheterization by cardiology. Review of Systems Constitutional: DENIES: Diaphoretic episodes, Fatigue, Fever, Weight gain, Weight loss, Chills, Dizziness, Change in appetite, Night Sweats Cardiovascular: DENIES: Chest pain, Palpitations, Syncope, Dyspnea on Exertion , PND, Lower Extremity Edema, Orthopnea, Claudication Gastrointestinal: COMPLAINS OF: Diarrhea (since resolved.), Nausea (resolved.) , DENIES: Abdominal pain, Black stools, Bloody stools, Constipation, Vomiting, Difficulty Swallowing, Anorexia Musculoskeletal: COMPLAINS OF: Joint pain (chronic.), Stiffness (chronic.) Psychiatric: DENIES: Anxiety, Confusion, Mood changes, Depression, Hallucinations, Agitation, Suicidal Ideation, Homicidal Ideation, Delusions Past Family Social History Allergies: Coded Allergies: MRI PRECAUTION (Verified Allergy, Severe, 01/18/17) HEAD Past Medical History Hypertension Degenerative joint disease with chronic NSAID usage. Cerebral aneurysm status post coil placement. Past Surgical History As above. Reported Medications Labetalol (Labetalol HCl) 200 Mg Tab 200 Mg PO DAILY Diovan Hct (Valsartan-Hydrochlorothiazide) 160-12.5 Mg Tab 1 Tab PO DAILY Meloxicam 7.5 Mg Tab 15 Mg PO DAILY, more recently diclofenac. Aspirin 325 Mg Tab 325 Mg PO DAILY Tamsulosin (Tamsulosin HCl) 0.4 Mg Cap 0.4 Mg PO HS Active Ordered Medications Inpatient Medications Aspirin (Aspirin Chew) 81 mg DAILY PO Last administered on 07/31/17at 08:33; Start 07/31/17 at 09:00 Aspirin (Aspirin) 325 mg RECREATION TEACHER PO ; Start 07/31/17 at 09:15; Stop 08/04/17 at 09:14 Atorvastatin Calcium (Lipitor) 40 mg DAILY PO Last administered on 07/31/17at 08: 32; Start 07/30/17 at 20:30 Digoxin (Lanoxin Inj) 0.5 mg ONCE ONCE IV PUSH Last administered on 07/30/17at 15:40; Start 07/30/17 at 15:45; Stop 07/30/17 at 15:46; Status DC Diltiazem HCl (Cardizem Inj) 15 mg ONCE ONCE IV ; Start 07/30/17 at 16:15; Stop 07/30/17 at 17:30; Status DC Diltiazem HCl 125 mg/Sodium Chloride 125 ml @ 5 mls/hr TITRATE PRN IV tachycardia; Start 07/30/17 at 16:15; Stop 07/30/17 at 17:30; Status DC Diphenhydramine HCl (Benadryl Inj) 25 mg RECREATION TEACHER IV PUSH ; Start 07/31/17 at 09: 15; Stop 08/04/17 at 09:14 Fentanyl Citrate (fentaNYL INJ) 50 mcg RECREATION TEACHER IV PUSH ; Start 07/31/17 at 09:15 ; Stop 08/04/17 at 09:14 Heparin Sodium (Porcine) (Heparin Inj) 2,500 units UNSCH PRN IV PUSH APTT 25 TO 39 Last administered on 07/31/17at 05:09; Start 07/31/17 at 02:30 Heparin Sodium/ Dextrose 250 ml @ 10 mls/hr TITRATE PRN IV Coagulation Management Last administered on 07/30/17at 23:05; Start 07/30/17 at 20:30; Stop 08/01/17 at 05:00 Labetalol HCl (Trandate) 200 mg DAILY PO ; Start 07/31/17 at 09:00; Stop 07/31/17 at 09:00; Status DC Metoprolol Tartrate (Lopressor) 50 mg Q12HR PO Last administered on 07/31/17at 08 :32; Start 07/30/17 at 21:15 Midazolam HCl (Versed Inj) 1 mg RECREATION TEACHER IV PUSH ; Start 07/31/17 at 09:15; Stop 08/04/17 at 09:14 Naloxone HCl (Narcan Inj) 0.4 mg UNSCH PRN IV PUSH SEE LABEL COMMENTS; Start at 17:45 Pantoprazole Sodium (Protonix) 40 mg DAILY PO Last administered on 07/31/17at 08: 32; Start 07/31/17 at 09:00 Sodium Chloride 1,000 ml @ 84 mls/hr [id number] IV Last administered on 07/31/17at 08:33; Start 07/30/17 at 20:00 Sodium Chloride (NS Flush) 2 ml BID IV FLUSH ; Start 07/30/17 at 21:00 Tamsulosin HCl (Flomax) 0.4 mg HS PO Last administered on 07/30/17at 20:45; Start 07/30/17 at 21:00 Valsartan (Diovan) 80 mg DAILY PO Last administered on 07/31/17at 09:00; Start at 09:00 Family History Denies a family history of renal disease. Social History Discontinue tobacco use 30 years ago. Denies current alcohol usage. Physical Exam Vital Signs Vital Signs Date Time Temp Pulse Resp B/P (MAP) Pulse Ox O2 Delivery O2 Flow Rate FiO2 07/31/17 16:44 98.5 55 20 110/59 (76) 97 07/31/17 11:31 98.5 51 20 112/73 (86) 98 07/31/17 08:08 97.8 50 20 128/72 (90) 100 07/31/17 04:13 53 07/31/17 03:00 97.1 82 19 130/99 (109) 97 07/31/17 00:42 97.8 54 18 98/56 (70) 97 07/30/17 22:30 60 07/30/17 20:31 98.2 58 18 118/61 (80) 96 07/30/17 18:58 Physical Exam GENERAL: Patient appears to be well-nourished. Not in respiratory distress. SKIN: Warm and dry. HEAD: Normocephalic. EYES: No scleral icterus. No injection or drainage. NECK: Supple, trachea midline. No JVD or lymphadenopathy. CARDIOVASCULAR: Regular rate and rhythm without murmurs, gallops, or rubs. RESPIRATORY: Breath sounds equal bilaterally. No accessory muscle use. GASTROINTESTINAL: Abdomen soft, non-tender, nondistended. MUSCULOSKELETAL: No cyanosis, or edema. BACK: No CVA tenderness. Laboratory Laboratory Tests Test 07/30/17 21:27 07/30/17 22:58 07/31/17 03:36 07/31/17 09:55 White Blood Count 6.5 7.2 Red Blood Count 4.49 4.15 Hemoglobin 13.6 12.8 Hematocrit 40.1 37.0 Mean Corpuscular Volume 89.3 89.3 Mean Corpuscular Hemoglobin 30.2 30.8 Mean Corpuscular Hemoglobin Concent 33.8 34.5 Red Cell Distribution Width 14.1 13.9 Platelet Count 171 161 Mean Platelet Volume 8.7 8.9 Prothrombin Time 11.8 Prothromb Time International Ratio 1.2 Activated Partial Thromboplast Time 23.5 38.5 43.9 Total Creatine Kinase 226 184 Troponin I 0.24 0.24 Triglycerides Level 144 Cholesterol Level 154 LDL Cholesterol 88 HDL Cholesterol 37.5 Cholesterol/HDL Ratio 4.10 Neutrophils (%) (Auto) 58.8 Lymphocytes (%) (Auto) 26.2 Monocytes (%) (Auto) 12.0 Eosinophils (%) (Auto) 2.5 Basophils (%) (Auto) 0.5 Neutrophils # (Auto) 4.2 Lymphocytes # (Auto) 1.9 Monocytes # (Auto) 0.9 Eosinophils # (Auto) 0.2 Basophils # (Auto) 0.0 CBC Comment DIFF FINAL Differential Comment Blood Urea Nitrogen 23 Creatinine 1.09 Random Glucose 96 Calcium Level 8.8 Sodium Level 143 Potassium Level 3.5 Chloride Level 110 Carbon Dioxide Level 26.8 Anion Gap 6 Estimat Glomerular Filtration Rate 68 Date/Time Source Procedure Growth Status 07/31/17 16:20 Stool Stool Stool Occult Blood (AMBIKA) Pending Received Result Diagram: 07/31/17 0336 07/31/17 0336 Imaging Last 48 hours Impressions Chest X-Ray 07/30/17 1526 Signed Impressions: Service Date/Time: Sunday, July 30, 2017 15:41 - CONCLUSION: 1. No acute abnormality or significant interval change. Hollis Chua MD Renal Ultrasound 07/30/17 0000 Signed Impressions: Service Date/Time: Sunday, July 30, 2017 20:57 - CONCLUSION: 1. No evidence of hydronephrosis. 2. 1 cm benign-appearing right renal cyst. Germán Mosquera MD Assessment and Plan Problem List: (1) Acute renal insufficiency ICD Codes: N28.9 - Disorder of kidney and ureter, unspecified Status: Acute Plan: Patient's acute renal insufficiency is most likely multifactorial in origin. Contributory factors by history would appear to include dehydration, impaired renal perfusion related to atrial fibrillation with rapid ventricular rate. In addition to chronic usage of diclofenac in association with valsartan likely related to prerenal state as discussed with the patient. Given his history of hypertension as well as possible cardiovascular disease I advised the patient that it would be prudent to avoid using NSAIDs for analgesia especially on a daily basis. Tylenol within dosing guidelines would be an acceptable alternative as discussed with him. Also the combination of an NSAID with either an angiotensin receptor leroy such as losartan or an LOUIE inhibitor would increase his susceptibility to acute renal insufficiency secondary to intravascular volume depletion. He was counseled regarding this in detail. If he wishes to continue to use and NSAIDs for analgesia I would strongly recommend avoiding an LOUIE inhibitor or angiotensin receptor leroy because of the risk of acute azotemia. We'll defer to primary care physician in regard to long-term hypertensive management however. As far as cardiac catheterization is concerned patient appears to have temporary decline in renal function secondary to prerenal factors. Based on current renal indices his risk of developing acute kidney damage the point of requiring dialytic support from on 100 mL of iodine contrast exposure would be only 0.04% while a risk of contrast nephrotoxicity which would likely be reversible would be 7.5%. I suspect that his renal indices will improve further tomorrow also. After discussing this with the patient he accepts the risk of acute renal insufficiency related to his cardiac catheterization and agrees to proceed. He is clear from a renal point of view in view of same. Recommend continuance of IV saline overnight prior to and 50 hours post cardiac catheterization. I would also recommend holding the valsartan until after the cardiac catheter tomorrow. This may also help to reduce risk of contrast injury. Patient will be seen on a when necessary basis. If any questions please call. (2) HTN (hypertension) ICD Codes: I10 - Essential (primary) hypertension Mohit Pacheco MD Jul 31, 2017 18:20
--- NOTE | 2017-07-31 19:03 | ECHRPT ---
Indication: CONCLUSIONS The left ventricular systolic function is normal with an estimated ejection fraction in the range of 60-65%. Mild concentric left ventricular hypertrophy. Trace mitral valve regurgitation. Moderate aortic valve regurgitation. Trivial pulmonary valve regurgitation. BP: 130 / 99 HR: 109 Rhythm: Sinus MEASUREMENTS (Male / Female) Normal Values Technical Quality:Fair 2D ECHO LV Diastolic Diameter PLAX 5.0 cm 4.2 - 5.9 / 3.9 - 5.3 cm LV Systolic Diameter PLAX 3.5 cm IVS Diastolic Thickness 1.2 cm 0.6 - 1.0 / 0.6 - 0.9 cm LVPW Diastolic Thickness 1.2 cm 0.6 - 1.0 / 0.6 - 0.9 cm LV Relative Wall Thickness 0.5 RV Internal Dim ED PLAX 3.1 cm LVOT Diameter 2.2 cm LA Systolic Diameter LX 4.0 cm 3.0 - 4.0 / 2.7 - 3.8 cm LV Ejection Fraction MOD 4C 60.7 % LV Ejection Fraction 4C AL 63.3 % M-MODE Aortic Root Diameter MM 3.3 cm LA Systolic Diameter MM 3.1 cm LA Ao Ratio MM 0.9 AV Cusp Separation MM 2.0 cm DOPPLER AV Peak Velocity 160.0 cm/s AV Peak Gradient 10.2 mmHg AI Peak Velocity 467.0 cm/s AI Peak Gradient 87.2 mmHg AI Pressure Half Time 379.0 ms LVOT Peak Velocity 130.0 cm/s LVOT Peak Gradient 6.8 mmHg AV Area Cont Eq pk 3.1 cm MV Area PHT 3.5 cm Mitral E Point Velocity 83.4 cm/s Mitral A Point Velocity 77.5 cm/s Mitral E to A Ratio 1.1 LV E' Lateral Velocity 7.1 cm/s Mitral E to LV E' Lateral Ratio 11.7 LV E' Septal Velocity 7.3 cm/s Mitral E to LV E' Septal Ratio 11.4 PV Peak Velocity 99.1 cm/s PV Peak Gradient 3.9 mmHg FINDINGS LEFT VENTRICLE The left ventricular systolic function is normal with an estimated ejection fraction in the range of 60-65%. Normal left ventricular size. Mild concentric left ventricular hypertrophy. No regional wall motion abnormalities are present. RIGHT VENTRICLE Normal right ventricular size and systolic function. LEFT ATRIUM The left atrial size is mildly dilated. RIGHT ATRIUM The right atrial size is normal. ATRIAL SEPTUM Normal atrial septal thickness. AORTA The aortic root and proximal ascending aorta are normal in size on limited imaging. MITRAL VALVE Structurally normal mitral valve. Trace mitral valve regurgitation. No mitral valve stenosis. AORTIC VALVE Trileaflet aortic valve. Moderate aortic valve regurgitation. No aortic valve stenosis. TRICUSPID VALVE Structurally normal tricuspid valve. No tricuspid valve stenosis or regurgitation. PULMONARY VALVE Trivial pulmonary valve regurgitation. The pulmonary valve is not well visualized. VESSELS The inferior vena cava is normal in size. PERICARDIUM No pericardial effusion. Jj Longo DO (Electronically Signed) Final Date:31 July 2017 19:02
[2017-07-31] MEDS: TAMSULOSIN HCL 0.4 MG CAP PO SCH (20:55)
[2017-07-31] MEDS: HEPARIN-D5W 25,000 U/250 ML 250 ML IV PRN (23:42)
[2017-08-01] VITALS: BP 118/77; PULSE 54; PULSE 55; RESP 18; TEMP 97.9; O2SAT 97
[2017-08-01 00:18] LABS: BACTERIA, URINE RARE /hpf; BILIRUBIN, URINE NEG (NEG); BLOOD, URINE NEG (NEG); GLUCOSE,URINE NEG (NEG); KETONE, URINE NEG (NEG); NITRITE,URINE NEG (NEG); URINE COLOR LIGHT-YELLOW (YELLW/STRAW); URINE LEUKOCYTE ESTERASE NEG (NEG)
[2017-08-01 04:00] VITALS: BP 133/78; PULSE 51; PULSE 56; RESP 18; TEMP 98.1; O2SAT 97
[2017-08-01] MEDS ORDERED: LACTATED RINGER'S 1000 ML IV PRN (04:00)
[2017-08-01] MEDS ORDERED: POVIDONE IODINE 5% (ANTISEPSIS KIT) 4 APPLICATIONS EACH NARE PRN (04:00)
[2017-08-01] MEDS ORDERED: CHLORHEXIDINE GLUCONATE 2 % 1 PACK (2 CLOTHS) TOPICAL PRN (04:00)
[2017-08-01 04:17] LABS: BICARBONATE 26.8 MEQ/L (21.0-32.0); CALCIUM 7.8 MG/DL (8.5-10.1); CREATININE 0.93 MG/DL (0.60-1.30)
[2017-08-01] MEDS ORDERED: HEPARIN-NS/PF FLUSH BAG 1,000 ML IV FLUSH ONE (06:58)
[2017-08-01] MEDS ORDERED: VERAPAMIL HCL 5 MG/2 ML VIAL ONE (06:59)
[2017-08-01] MEDS ORDERED: HEPARIN SODIUM - IV 10,000 UNITS/10 ML VIAL ONE (06:59)
[2017-08-01] MEDS ORDERED: MIDAZOLAM HCL 2 MG/2 ML VIAL ONE (06:59)
[2017-08-01] MEDS ORDERED: NITROGLYCERIN INJ 5 ML ONE (06:59)
[2017-08-01] MEDS ORDERED: SODIUM CHLOR 0.9% 1000 ML INJ 1,000 ML IV SCH (07:58)
--- NOTE | 2017-08-01 07:58 | CATHPROC ---
Inductly HIS Report Study Information Study Number Admission Scheduled Start Study Start [id number] Jul 30 2017 5:37PM 07/31/2017 Aug 01 2017 6:53AM [place] [facility] Cardiac Catheterization Admit Source Facility Department Other [facility] - Religious Educator Physician and Clinical Staff Initial Holger Maxwell Investigator Operator Christina Jama,RN Investigator Operator Alicia Hernadez RN Other cathlab, cathlab Recorder Joel Mata RCIS(BS) Scrub Christina PinedaRT(R) Procedures Performed Procedure Location (Site) Vessel Name Coronary Angiograms LCA Left Coronary Coronary Angiograms RCA Right Coronary L Heart Cath Equipment Time Paving Contractor Description Size Mfg Part Number Used/Scraped TRANSDUCER, TRUWAVE [id number] 06:54 Cloudy Days * Used W/STOCKTianKe Information TechnologyCK *[id number] *[id number] 06:54 MALLINCKRODT SYRINGE, ANGIOMAT 150ML 150ML *[id number] Used 2SUB [id number] 06:54 Dragon Inside PACK, CCL CUSTOM * Used *[id number] 06:54 Dragon Inside SUPPORT, ARTERIAL ADULT 09612 *[id number] Used BAND, RADIAL COMPRESSION TR [id number] 07:42 Doctor At Work 29CM Used LARGE 29 *[id number] SHEATH, FR6 RADIAL PRELUDE 07:25 Doctor At Work FR 6 [id number] Used EASE 11CM SHEATH, FR6 RADIAL PRELUDE 06:55 Doctor At Work FR 6 [id number] Used EASE 11CM [id number] 06:54 Doctor At Work WIRE, EXCHANGE 260CM 3MMJ 260CM Used *[id number] 06:54 NAMIC MANIFOLD, 4 PORT * Used *[id number] 06:54 NYCOMED OMNIPAQUE, 350 MG, 150ML 150ML [id number] Used [id number] 06:54 ISABEL BlockSpring BLANKET,WARM AIR CCL * Used *[id number] CATHETER, FR5 OPTITORQUE [id number] 07:25 TERVeriTeQ Corporation FR 5 Used RADIAL TIG 4.0 *[id number] Equipment Model, Serial, Lot Number and Expiration Data Description Model Number Serial Number Lot Number Expiration Date BAND, RADIAL COMPRESSION TR [id number] 02-22-2020 LARGE 29 SHEATH, FR6 RADIAL PRELUDE [id number] 12-21-2020 EASE 11CM History: Current Medications Medication Dosage/Unit Route Frequency Last Date/Time Taken FLOMAX ASA History: Allergies Allergy Reaction MRI PRECAUTION History: Risk Factors Family History of Hypertension Dyslipidemia Previous MS Previous Heart Failure Premature CAD Yes No No Yes No Prior Valve Prior PCI Prior CABG Surgery No No No Cerebrovascular Peripheral Artery Chronic Lung On Dialysis Diabetes Disease Disease Disease No No No No No History: Symptoms/Diagnosis Selection Items SOB History: Stress Tests Stress or Imaging Studies Performed No History: Other Current Smoker Method Quit Packs a Day Years Used Pack Years No Cigarettes 30 Years Ago 1 20 20 Labs Hgb (g/dl) Hct (%) WBC (l/cumm) Platelets (thousands) 11.60-17.00 35.00-51.00 4.00-11.00 150.00-450.00 12.8 37.8 7.2 161 Glucose (mg/dl) BUN (mg/dl) Creatinine (mg/dl) BUN:Creatinine (1:x) 74.00-106.00 7.00-18.00 0.50-1.30 10.00-20.00 88 18 0.9 20 Na (meq/l) K (meq/l) 136.00-145.00 3.50-5.10 143 3.6 INR (PTT:PT) 0.90-1.10 1.2 CPK-MB (ng/ML) 0.50-3.60 Not Drawn Medication Medication Total Dose (Bolus/Oral) Medication Total Dosage/Unit 1% XYLOCAINE 3 mL FENTANYL 50 mcg RADIAL COCKTAIL 5 mL (Bolus) VERSED 2 mg Medications (Bolus/Oral) Medication Time Given Dosage/Unit Administered By Reason VERSED 08/01/2017 7:20:38 AM 2 mg Christina Jama 2 mg VERSED given in lab by Christina Jama, RN in Left Antecubital via Peripheral IV. Ordered by Holger Colon. FENTANYL 08/01/2017 7:20:46 AM 50 mcg Christina Jama 50 mcg FENTANYL given in lab by Christina Jama, AMADOR in Left Antecubital via Peripheral IV. Ordered by Holger Charles. 1% XYLOCAINE 08/01/2017 7:21:16 AM 3 mL Holger Charles 3 mL 1% XYLOCAINE given in lab by Holger Charles in Right Radial via Subcutaneous. Ntg 200mcg Verapamil 2.5mg Heparin RADIAL COCKTAIL 08/01/2017 7:28:15 AM 5 mL (Bolus) Holger Charles 3000U 5 mL (Bolus) RADIAL COCKTAIL given in lab by Holger Charles in Right Radial via Radial. Using [Solu tion Name]. Reason: Ntg 200mcg Verapamil 2.5mg Heparin 3000U. Medication (Drip) Medication Time Given Dosage/Unit Concentration/Unit Diluent (ml) Solutio n IV Solutions 08/01/2017 7:00:58 AM 0 mL (IV) 500 NaCl .9 Patient arrived on IV Solutions given by cathlab, cathlab in Left Antecubital via Peripheral IV. Pump /Drip Flow = 20 ml/hr using NaCl .9. Ordered by Holger Charles. Initial Case Assessment Cardiovascular HR Rhythm NIBP Chest Pain 50 hollie 172/90 0 Edema Present Skin color Skin None Normal Warm Dry Circulatory - Right Pulses Dorsalis Pedis Femoral Radial 2 2 2 Scale (0,1,2,3,4,d) Circulatory - Left Pulses Dorsalis Pedis Femoral Radial 2 2 Scale (0,1,2,3,4,d) Neurological State Oriented to time-place- Alert Moves all extremities person Respiration - General Respiration Rate SpO2 (%) (B/min) 15 96 Final Case Assessment Cardiovascular HR Rhythm NIBP Chest Pain 55 hollie 123/79 0 Edema Present Skin color Skin None Normal Warm Dry Circulatory - Right Pulses Dorsalis Pedis Femoral Radial 2 2 2 Scale (0,1,2,3,4,d) Circulatory - Left Pulses Dorsalis Pedis Femoral Radial 2 2 Scale (0,1,2,3,4,d) Neurological State Oriented to time-place- Alert Moves all extremities person Respiration - General Respiration Rate SpO2 (%) (B/min) 15 96 Chronological Log Time Study Chronological Log 7:00:43 Patient arrived via Bed. Heparin drip DCed upon machine pecan picker per MD. 7:00:44 Patient Name, D.O.B, / Armband Verified By R.N. 7:00:44 Consent signed by the physician and the patient and verified by the Religious Educator staff. 7:00:46 Pre-op and post- op instructions given; patient acknowledges understanding of instructions. 7:00:46 Verbal Stimulation=2 Physical Stimulation=2 Airway=2 Respiration=2 TOTAL=8. (0=absent, 1=li mited, 2=present) 7:00:52 Presedation assessment performed by Religious Educator RN. 7:00:53 Immediate Presedation assesment performed by physician. 7:00:54 Patient has been NPO for More than 6Hrs. 7:00:55 Skin Breakdown- none per patient 7:00:55 Patient Warmer Placed on the Table. 7:00:57 Ghazala Prominences Protected 7:00:57 A # 20 IV was noted in the Antecubital (left). Grade = 0 Patient arrived on IV Solutions given by cathlab, cathlab in Left Antecubital via Peripheral IV . Pump/Drip Flow = 20 7:00:58 ml/hr using NaCl .9. Ordered by Holger Charles. 7:00:58 History and physical on the chart or being dictated. 7:03:44 MD arrived. 7:07:59 Contrast Scanned 7:08:01 Immediate Presedation assesment performed by physician. 7:08:12 Reference ECG taken Vitals capture started with the following parameters, Patient=Adult, Interval=5 min, Initial Pre ayqqm=118 mmHg, 7:08:14 Deflation Rate=5 mmHg, Cuff placed on Left Arm 7:09:25 HR=48 bpm, MQOZ=624/90 mmhg, SpO2=98.0 %, Resp=12 B/min, Pain=0, Adams=10, Ponce=2 Assessment: Initial Case, HR=50 BPM, Rhythm=hollie, WFCN=538/90 mmhg, Chest Pain=0, Edema=None, Color=Normal, Skin = Warm, Dry Right Pulses: Samir Ped=2, Femoral=2, Radial=2 7:10:00 Left Pulses: Samir Ped=2, Femoral=2 Neurological: State=Alert, Ox3, SENIOR Respiration: Resp=15 B/min, SpO2=96 % 7:12:44 Right Radial and groin(s) prepped with 2% chlorhexidine, and draped after a 3 min. waiting t bernardo. 7:13:51 HR=51 bpm, HLIP=687/99 mmhg, SpO2=99.0 %, Resp=17 B/min, Pain=0, Adams=10, Ponce=2 7:18:26 Pressure channel 1 zeroed. 7:19:27 HR=50 bpm, QDNJ=268/97 mmhg, SpO2=99.0 %, Resp=11 B/min, Pain=0, Adams=10, Ponce=2 Time Out. Correct patient, correct procedure, correct physician, power injector not loaded with contrast with surgical 7:19:53 team present. Time Out Concurred by MD and individual staff in procedure. 7:20:11 Case Start 7:20:38 2 mg VERSED given in lab by Christina Jama RN in Left Antecubital via Peripheral IV. Ordere d by Holger Charles. 7:20:46 50 mcg FENTANYL given in lab by Christina Jama RN in Left Antecubital via Peripheral IV. Or dered by Holger Charles. 7:21:16 3 mL 1% XYLOCAINE given in lab by Holger Charles in Right Radial via Subcutaneous. 7:23:13 Access site was Right Radial Artery. 7:23:53 HR=49 bpm, LKXI=001/97 mmhg, SpO2=98.0 %, Resp=12 B/min, Pain=0, Adams=10, Ponce=2 A SHEATH, FR6 RADIAL PRELUDE EASE 11CM FR 6 was advanced into the Radial (right) using the Leticia gautam 7:24:00 technique. 7:27:00 In the Radial (right) the SHEATH, FR6 RADIAL PRELUDE EASE 11CM FR [address] by Holger Charles. 5 mL (Bolus) RADIAL COCKTAIL given in lab by Holger Charles in Right Radial via Radial. Using [Solution Name]. 7:28:15 Reason: Ntg 200mcg Verapamil 2.5mg Heparin 3000U. A CATHETER, FR5 OPTITORQUE RADIAL TIG 4.0 FR 5 was advanced over a wire. OMNIPAQUE, 350 MG, 150M L 150ML 7:28:30 was used for injections. 7:28:54 HR=47 bpm, PZPH=690/90 mmhg, SpO2=93.0 %, Resp=11 B/min 7:32:30 The LCA was injected and visualized at various angles. OMNIPAQUE, 350 MG, 150ML 150ML used. Recorded Pressure: Ao, HR=60, Condition=Condition 1 7:33:42 (Aorta) Ao 127/80/101 7:33:49 HR=56 bpm, EFIQ=828/80 mmhg, SpO2=95.0 %, Resp=16 B/min, Pain=0, Adams=10, Ponce=2 7:36:05 The RCA was injected and visualized at various angles. OMNIPAQUE, 350 MG, 150ML 150ML used. 7:39:31 HR=55 bpm, QBEY=379/79 mmhg, SpO2=95.0 %, Resp=15 B/min, Pain=0, Adams=10, Ponce=2 7:41:15 Catheter was removed 7:41:17 Case End Assessment: Final Case, HR=55 BPM, Rhythm=hollie, NLDT=912/79 mmhg, Chest Pain=0, Edema=None, Color=Normal, Skin = Warm, Dry Right Pulses: Samir Ped=2, Femoral=2, Radial=2 7:42:10 Left Pulses: Samir Ped=2, Femoral=2 Neurological: State=Alert, Ox3, SENIOR Respiration: Resp=15 B/min, SpO2=96 % 7:43:43 Catheter(s) removed without difficulty Radial Compression Device Used. 12 mLs of air placed in BAND, RADIAL COMPRESSION TR LARGE 29 29C M. Affected 7:43:44 hand 97 % O2 saturation. 7:43:53 Sterile dressing applied to site 7:43:53 No case complications noted. 7:43:54 Cine recording checked. 7:43:55 Bedside Report will be given. 7:43:57 Contrast Scanned 7:43:57 Verbal Stimulation=2 Physical Stimulation=2 Airway=2 Respiration=2 TOTAL=8. (0=absent, 1=l imited, 2=present) 7:44:03 A Left Heart Cath was performed. 7:44:14 HR=52 bpm, MOIE=555/85 mmhg, SpO2=95.0 %, Resp=20 B/min, Pain=0, Adams=10, Ponce=2 7:49:29 HR=48 bpm, YTAK=706/82 mmhg, SpO2=97.0 %, Resp=14 B/min, Pain=0, Adams=10, Ponce=2 7:53:34 Vitals capture stopped. End Study - Contrast Media Used In Study Contrast Total Opened (mL) Total Used (mL) Total Wasted (mL) Omnipaque 50 50 0 End Study - Maximum Contrast Load Max Contrast Load (mL) 563.1 End Study - Radiation Exposure Fluoro Time (minutes) 4.2 End Study - Patient Disposition Complications Transferred To Interventional Outcome No Religious Educator Holding No attempt made
[2017-08-01] MEDS ORDERED: MISC INFORMATION XX ONE (08:00)
[2017-08-01] MEDS ORDERED: SODIUM CHLOR 0.9% 250 ML INJ 250 ML IV PRN (08:00)
[2017-08-01] MEDS ORDERED: BACITRACIN OINT 0.9 GM PKT TOP ONE (08:00)
[2017-08-01] MEDS ORDERED: ATROPINE SULFATE 1 MG/ML VIAL IV PUSH PRN (08:00)
[2017-08-01] MEDS ORDERED: SODIUM CHLORIDE 0.9% FLUSH 10 ML FLUSH IV FLUSH PRN (08:00)
[2017-08-01] MEDS ORDERED: RIVAROXABAN 20 MG TAB PO ONE (08:15)
[2017-08-01] MEDS ORDERED: XARE20TA PO (08:49)
[2017-08-01] MEDS ORDERED: LIPI40TA PO (08:49)
[2017-08-01] MEDS ORDERED: TOPR100T PO (08:49)
[2017-08-01] MEDS ORDERED: DIOV80TA4 PO ×2 (08:49→12:43)
[2017-08-01] MEDS: ASPIRIN 81 MG CHEW TAB PO SCH (09:00)
[2017-08-01] MEDS: ATORVASTATIN 40 MG TAB PO SCH (09:00)
[2017-08-01] MEDS: PANTOPRAZOLE SOD 40 MG DELAYED RELEASE TAB PO SCH (09:00)
[2017-08-01] MEDS: SODIUM CHLORIDE 0.9% FLUSH 10 ML FLUSH IV FLUSH SCH (09:00)
[2017-08-01] MEDS ORDERED: SODIUM CHLORIDE 0.9% FLUSH 10 ML FLUSH IV FLUSH SCH (09:00)
[2017-08-01] MEDS ORDERED: IOHEXOL 350 MG/ML 50 ML BTL (for Cath Lab) OTHER ONE (09:06)
--- NOTE | 2017-08-01 11:45 | HHI.PR ---
Subjective Remarks Follow up for Afib, NSTEMI. Patient underwent LHC today. No acute concerns. Cardiology cleared for discharge. Objective Vitals Vital Signs Date Time Temp Pulse Resp B/P (MAP) Pulse Ox O2 Delivery O2 Flow Rate FiO2 08/01/17 08:08 95 Room Air 08/01/17 04:00 51 08/01/17 04:00 98.1 56 18 133/78 (96) 97 08/01/17 00:00 97.9 55 18 118/77 (91) 97 08/01/17 00:00 54 07/31/17 20:00 52 07/31/17 20:00 98.0 53 18 150/78 (102) 95 07/31/17 16:44 98.5 55 20 110/59 (76) 97 I/O 07/31/17 07/31/17 07/31/17 08/01/17 08/01/17 08/01/17 07:00 15:00 23:00 07:00 15:00 23:00 Intake Total 960 ml 940 ml 240 ml Balance 960 ml 940 ml 240 ml Intake Oral 960 ml 940 ml 240 ml # Voids 3 4 3 # Bowel Movements 0 1 Result Diagram: 07/31/17 0336 08/01/17 0302 Imaging Last Impressions Chest X-Ray 07/30/17 1526 Signed Impressions: Service Date/Time: Sunday, July 30, 2017 15:41 - CONCLUSION: 1. No acute abnormality or significant interval change. Hollis Chua MD Renal Ultrasound 07/30/17 0000 Signed Impressions: Service Date/Time: Sunday, July 30, 2017 20:57 - CONCLUSION: 1. No evidence of hydronephrosis. 2. 1 cm benign-appearing right renal cyst. Germán Mosquera MD Objective Remarks GENERAL: AOX3, NAD. SKIN: Warm and dry. HEAD: Normocephalic. EYES: No scleral icterus. No injection or drainage. NECK: Supple, trachea midline. No JVD or lymphadenopathy. CARDIOVASCULAR: Regular rate and rhythm without murmurs, gallops, or rubs. RESPIRATORY: Breath sounds equal bilaterally. No accessory muscle use. GASTROINTESTINAL: Abdomen soft, non-tender, nondistended. MUSCULOSKELETAL: No cyanosis, or edema. BACK: Nontender without obvious deformity. No CVA tenderness. Procedures Cardiac cath - no stents placed Echo The left ventricular systolic function is normal with an estimated ejection fraction in the range of 60-65%. Mild concentric left ventricular hypertrophy. Trace mitral valve regurgitation. Moderate aortic valve regurgitation. Trivial pulmonary valve regurgitation. A/P Problem List: (1) Atrial fibrillation ICD Code: I48.91 - Unspecified atrial fibrillation (2) NSTEMI (non-ST elevated myocardial infarction) ICD Code: I21.4 - Non-ST elevation (NSTEMI) myocardial infarction Assessment and Plan Mr. Mead is a pleasant 66 year old male with a history of HTN who was admitted to the hospital due to dizziness, lightheadedness, diaphoresis. He did not have any chest pain. He was found to have Afib and elevated troponin. Cardiology was consulted. - New onset Atrial fibrillation - [id number] score 1 (HTN). - Cardiology on board and appropriately recommends Cardiac cath scheduled for 08/01/2017. - Continue Metoprolol - TSH 3.75 - would recommend checking TSH, Free T4 in 4 weeks. - Cardiology recommended Xarelto 20mg Qday. - NSTEMI - Although patient did not have chest pain, his diaphoresis is concerning for ACS. - Afib could be a result of ischemic event but elevated troponin could be from Afib as well as MAYELA as well. - Continue Xarelto, BB, Lipitor 40mg Qday. - Cath done. Cardiology cleared for discharge. - Acute kidney injury - Creatinine 2.24 --> 1.09 --> 0.93. Possibly due volume depletion. Avoid nephrotoxins. - Hypertension - Continue Valsartan 80mg Qday. - BPH - cont. Tamsulosin 0.4mg QHS. - GERD - continue Protonix 40mg Qday. Full code. Will be on Xarelto Discharge patient to home Condition on discharge: Improved Heart healthy Diet as tolerated Ad Dolores activity Rx written: Metoprolo succinate 100 mg daily Lipitor 40 mg daily Xarelto 20 mg daily Follow-up with primary care physician in 2 weeks and cardiology follow-up in 2 weeks. Gianfranco Brooke DO Aug 01, 2017 11:45 am
[2017-08-01 12:10] VITALS: BP 134/75; PULSE 54; RESP 20; TEMP 97.5; O2SAT 98
[2017-08-02] MEDS ORDERED: METOPROLOL SUCCINATE 50 MG EXTENDED RELEASE TAB PO SCH (09:00)
--- NOTE | 2017-08-02 11:54 | MA ---
cc: BROOKS KENT M.D., MARK B. M.D. DATE 08/01/2017 PROCEDURE PERFORMED Left heart catheterization, coronary arteriography, left ventriculography. PROCEDURE TECHNIQUE The patient was brought to the cardiac catheterization laboratory and the area of the right wrist and right groin were prepped and draped in the usual sterile manner. Following 2 mL of 1% Xylocaine for local anesthesia in the right wrist radial artery area, the right radial artery was entered with a needle for placement of a floppy guidewire. The needle was removed and a 6-Kiswahili short introducer sheath was placed without difficulty. The usual cocktail including Verapamil 2.5 mg, nitroglycerin 200 mcg and 3000 units of heparin were infused prior to the procedure. The sheath was sutured with 2-0 silk to the skin for stability. Through the introducer sheath, a 6-Kiswahili diagnostic catheter system including a TIG catheter was utilized for the entire procedure. Multiple projections of the left and right coronary arteries were taken. The left ventriculogram was not performed in the interest of reducing intravenous contrast load due to renal insufficiency. At completion of the diagnostic procedure, the catheter was removed and the introducer sheath was removed and TR band placed with good hemostasis manually. The patient tolerated the procedure well. There were no immediate complications. HEMODYNAMIC DATA The left ventricle was not entered. For complete hemodynamic details, please see accompanying paperwork. ANGIOGRAPHIC FINDINGS LEFT VENTRICLE Not performed. LEFT CORONARY ARTERY The left main trunk arises normally from the left coronary sinus. The left main coronary artery is a large caliber vessel and is normal. The left anterior descending artery: The LAD is a moderate caliber vessel whose course is to the apex. The LAD gives rise to one major diagonal branch and multiple septal perforating branches. There are mild luminal irregularities throughout the LAD with an approximately 10% proximal stenosis. The diagonal branch is moderate in caliber and normal. RAMUS INTERMEDIUS The ramus intermedius is a large caliber vessel with a 10-15% proximal stenosis. This vessel is otherwise normal. CIRCUMFLEX The main circumflex gives rise to a posterolateral branch. The main circumflex is moderate in caliber and has mild luminal irregularities. The posterolateral branch is small to medium in caliber and normal. RIGHT CORONARY ARTERY Dominant. The right coronary artery is a large-caliber vessel and is mildly ectatic throughout the mid and distal segments. It gives rise to the right ventricular marginal branch, posterior descending branch and a posterior ventricular branch. There are mild areas of up to 10% stenosis in the mid segment. The posterior descending branch is moderate in caliber and has mild luminal irregularities. The posterior ventricular branch is small in caliber and normal. DIAGNOSIS 1. Mild coronary atherosclerosis. 2. Normal left ventricular function by recent echocardiography. 3. Paroxysmal atrial fibrillation with elevated cardiac markers. RECOMMENDATIONS The patient does not have demonstrate any hemodynamically significant epicardial coronary disease and he will continue with medical therapy. Intravenous fluid hydration has been ordered for the next 4-6 hours postoperatively and he will be discharged to home later tonight when ambulatory and stable. These recommendations have been discussed with the patient and his family. Followup will be arranged in [id number] weeks. MD DIONNE Park/KIKE /7:52 AM /11:21 AM
--- NOTE | 2017-08-08 08:07 | PQ ---
Physician Query Response Document PATIENT: ANGELICA GIRON : 1950 ADMIT DATE: 07/30/2017 5:37 PM DISCH DATE: 08/01/2017 12:53 PM RESPONDING PROVIDER #: devin QUERY TEXT: Clarification of Clinical Diagnostic Findings Please clarify documentation or clinical relevance for the clinical / diagnostic findings or whether those are insignificant or unable to be further specified. WAS THE NSTEMI RULED IN, RULED OUT OR IS THERE A MORE APPROPRIATED DIAGNOSIS? Your prompt response is appreciated, please do not hesitate to contact the CDI/Coding Hotline with an y questions, comments and/or concerns you may have at ext. [phone]. The patient's Clinical Indicators include: ELEVATED TROPONIN, NEW ONSET ATRIAL FIBRILLATION-H POSSIBLE NSTEMI CPK 308, CPK-MB 3.8, TROPONIN SERIES 0.13, 0.24, 0.24 EK/6 A.FIB,LAFB,MINIMAL ST DEPRESSION, 07/[address]-T CHANGES ARE NONSPECIFIC HEART CATH 08/01: MILD ATHEROSCLEROSIS 10-15% STENOSIS IN 2 ARTERIES. ATTENDING LAST PROG NOTE: NSTEMI - Although patient did not have chest pain, his diaphoresis is concerning for ACS. - Afib could be a result of ischemic event but elevated troponin could be from Afib as well as MAYELA as well. - Continue Xarelto, BB, Lipitor 40mg Qday. - Cath done. Cardiology cleared for discharge. Query created by: Cheri Bright on 08/07/2017 1:31 PM RESPONSE TEXT: NSTEMI type 2 - likely due to Atrial fibrillation and also from Acute kidney injury. Electronically signed by: Anshul Brooke DO 08/08/2017 8:03 AM
== END 2017-08-01 12:53 | disposition home or self-care (01) | DRG 281 ==
LOC: NEPC 15:13 → NEDA 17:34 → OBSVTOIN 17:37 → N05B 19:10
PROVIDERS: ADMIT Hospitalist; ATTEND Hospitalist
PROC: B2111ZZ Fluoroscopy of Multiple Coronary Arteries using Low Osmolar Contrast (ICD-10-PCS; 2017-08-01)
PROC: 4A023N7 Measurement of Cardiac Sampling and Pressure, Left Heart, Percutaneous Approach (ICD-10-PCS; principal; 2017-08-01 07:15)
DX: I48.0 Paroxysmal atrial fibrillation (principal); I21.A1 Myocardial infarction type 2; N17.9 Acute kidney failure, unspecified; K57.92 Diverticulitis of intestine, part unspecified, without perforation or abscess without bleeding; E86.0 Dehydration; I44.4 Left anterior fascicular block; I25.10 Atherosclerotic heart disease of native coronary artery without angina pectoris; K21.9 Gastro-esophageal reflux disease without esophagitis; I10 Essential (primary) hypertension; I08.0 Rheumatic disorders of both mitral and aortic valves; M19.90 Unspecified osteoarthritis, unspecified site; E66.9 Obesity, unspecified; N40.0 Benign prostatic hyperplasia without lower urinary tract symptoms; Z68.35 Body mass index [BMI] 35.0-35.9, adult; Z82.49 Family history of ischemic heart disease and other diseases of the circulatory system; Z87.891 Personal history of nicotine dependence
CPT/HCPCS: 71045; 76775; 80048; 80053; 80061; 81001; 82272; 82550; 82552; 83036; 83735; 83880; 84443; 84484; 85025; 85027; 85610; 85730; 93005; 93306; 93454; 96361; 96374; 99152; C1769; C1893; J1160; J1644; J2250; J3010; J7030; Q9967

== ENCOUNTER → 2017-10-28 | Outpatient (CLI) | payer MEDICARE ==
[~2017-10-28] MED LIST changes: +ADJUSTABLE COMM1 MIS; +AMLO5TAB2 PO; -ASPI-183 PO; -DIOV160T3 PO; +DIOV80TA4 PO; +HYDR-3516 PO; -LABE200T2 PO; +LIPI40TA PO; +PANT40TA3 PO; +TOPR100T PO; +TRAM50 PO; +WALKER WHEELS/F1 MIS; +XARE10TA PO; +XARE20TA PO
[2017-10-28 08:36] LABS: BILIRUBIN, URINE NEG (NEG); BLOOD, URINE NEG (NEG); GLUCOSE,URINE NEG (NEG); KETONE, URINE NEG (NEG); MUCUS URINE FEW /lpf (OCC); NITRITE,URINE NEG (NEG); PH, URINE 6.5 (5.0-8.5); URINE COLOR LIGHT-YELLOW (YELLW/STRAW); URINE LEUKOCYTE ESTERASE NEG (NEG)
[2017-10-28 08:47] LABS: AUTOMATED NEUTROPHIL # 3.8 TH/MM3 (1.8-7.7); BASOPHIL % 0.6 % (0.0-2.0); EOSINOPHIL # 0.1 TH/MM3 (0-0.4); EOSINOPHIL % 2.2 % (0.0-4.0); HEMATOCRIT 40.9 % (39.0-51.0); LYMPH % 19.7 % (9.0-44.0); LYMPHOCYTE # 1.1 TH/MM3 (1.0-4.8); MEAN CELL VOLUME 87.8 FL (80.0-100.0); MEAN CORPUSCULAR HEMOGLOBIN 30.1 PG (27.0-34.0); MEAN CORPUSCULAR HGB CONC 34.3 % (32.0-36.0); MEAN PLATELET VOLUME 8.3 FL (7.0-11.0); MONO % 9.6 % (0.0-8.0); MONOCYTE # 0.5 TH/MM3 (0-0.9); NEUT % 67.9 % (16.0-70.0); PLATELET COUNT 176 TH/MM3 (150-450); RED BLOOD COUNT 4.66 MIL/MM3 (4.50-5.90); RED CELL DISTRIBUTION WIDTH 13.7 % (11.6-17.2); WHITE BLOOD COUNT 5.6 TH/MM3 (4.0-11.0)
[2017-10-28 09:04] LABS: ALBUMIN 3.6 GM/DL (3.4-5.0); ALT (GPT) 34 U/L (12-78); AST (GOT) 17 U/L (15-37); BICARBONATE 27.9 MEQ/L (21.0-32.0); BLOOD UREA NITROGEN 14 MG/DL (7-18); CALCIUM 8.7 MG/DL (8.5-10.1); CHLORIDE 106 MEQ/L (98-107); CREATININE 0.94 MG/DL (0.60-1.30); GLOMERULAR FILTRATION RATE 81 ML/MIN (>89); GLUCOSE,FASTING 103 MG/DL (74-99); SODIUM (NA) 141 MEQ/L (136-145)
[2017-10-28 09:07] LABS: ALKALINE PHOSPHATASE 84 U/L (45-117); TOTAL BILIRUBIN ADULT 1.6 MG/DL (0.2-1.0); TOTAL PROTEIN 7.4 GM/DL (6.4-8.2)
--- NOTE | 2017-10-28 09:07 | RADRPT ---
EXAM DATE/TIME: 10/28/2017 08:46 [facility] COMPARISON: No previous studies available for comparison. INDICATIONS : Evaluate for pneumonia, pneumothorax or communicable disease. Pre-op for right knee replacement. MEDICAL HISTORY : Hypertension. SURGICAL HISTORY : None. ENCOUNTER: Initial ACUITY: 1 day PAIN SCORE: 0/10 LOCATION: Bilateral chest FINDINGS: PA and lateral views of the chest demonstrate the lungs to be symmetrically aerated without evidence of mass, infiltrate or effusion. The cardiomediastinal contours are unremarkable. Osseous structure s are intact. CONCLUSION: No acute disease. Bogdan Mejia MD FACR on October 28, 2017 at 9:05 Board Certified Radiologist. This report was verified electronically.
--- NOTE | 2017-10-30 11:57 | EKG ---
Date Performed: 10/28/2017 Time Performed: 08:10:08 PTAGE: 67 years EKG: SINUS BRADYCARDIA MARKED LEFT AXIS DEVIATION PATTERN CONSISTENT WITH PULMONARY DISEASE MODE RATE INTRAVENTRICULAR CONDUCTION DELAY NONSPECIFIC T-WAVE ABNORMALITY ABNORMAL ECG PREVIOUS TRACING : 07/31/2017 04.08 DOCTOR: Kenn Wiggins Interpretating Date/Time 10/30/2017 11:55:33
== END ==
LOC: CPRE 07:48
PROVIDERS: ATTEND Orthopaedic Surgery
DX: Z01.812 Encounter for preprocedural laboratory examination (principal); Z01.810 Encounter for preprocedural cardiovascular examination; Z01.811 Encounter for preprocedural respiratory examination; M79.609 Pain in unspecified limb
CPT/HCPCS: 36415; 71046; 80053; 81001; 85025; 93005

== ENCOUNTER 2017-11-06 05:26 | Inpatient (IN) | payer MEDICARE ==
--- NOTE | 2017-11-05 12:51 | MH ---
cc: Devin Hernandez MD DATE OF ADMISSION: 11/06/2017 DIAGNOSIS: End-stage osteoarthritis, right knee. PAST MEDICAL HISTORY: Total knee replacement arthroplasty, left knee, performed a few years ago and has done very well from that. He has had chronic problems with both knees, treated nonoperatively for several years. The patient has had history of aneurysm clips. 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 He has recent admission to the hospital for some kidney injury that resolved by itself. He also has history of hypertension and obesity. MEDICATIONS: Diovan 80 mg daily, Flomax 0.4 mg daily, Xarelto 20 mg daily, metoprolol 100 mg daily, Lipitor 40 mg daily, pantoprazole 40 mg daily. PAST SURGICAL HISTORY: Left total knee. HISTORY OF PRESENT ILLNESS: As mentioned before, he has had chronic problems with both knees with osteoarthritis, treated nonoperatively with NSAIDs and intra-articular injections of steroids, etc. 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 The diagnosis, the treatment, the prognosis, the procedure itself, and the post-hospital and postoperative care have all been discussed in detail with the patient. Potential risks, hazards, complications, and expected results, particularly in relation to discontinuing anticoagulation and resuming anticoagulation with resultant risks of blood clots and bleeding have been discussed. Informed consent has been obtained. No guarantees made. Details of the informed consent have been documented on the office record and, therefore, will not be repeated here. PHYSICAL EXAMINATION: Reveals a mild to moderately overweight white male, who has a varus deformity of the right knee. Right knee has lack of terminal extension to the last 5 degrees, but flexes well past 90 degrees. There is no obvious warmth or effusion. There is tenderness of the medial joint line. He has palpable pedal pulses and he moves his toes well. HEENT: Head normocephalic. Pupils reactive to light. He wears glasses. Face Symmetrical. HEART: Regular rhythm, no murmurs. LUNGS: Clear to auscultation. ABDOMEN: Soft and supple. Preop workup has been reviewed. Cardiology clearance has been obtained. His last dose of Xarelto was on 11/02 (we actually had told him to take the last dose 11/03, but he says he wanted to play it safe. This is sufficient time for him to be off Xarelto for the surgery tomorrow. We will resume Xarelto postoperatively, but half dose (10 mg) for about 2 weeks and then back to 20 mg daily. MD ANJEL Bailey/LULU , 12:20 PM , 12:50 PM
[~2017-11-06] VITALS: Ht 170.2 cm; Wt 98.8 kg
[~2017-11-06 05:26] MED LIST changes: -ADJUSTABLE COMM1 MIS; -HYDR-3516 PO; -MELO7.5T27 PO; -TRAM50 PO; -WALKER WHEELS/F1 MIS; -XARE10TA PO
[2017-11-06] MEDS ORDERED: LACTATED RINGER'S 1000 ML IV PRN (06:00)
[2017-11-06] MEDS ORDERED: POVIDONE IODINE 7.5% SCRUB 118 ML BOTTLE TOPICAL SCH (06:00)
[2017-11-06] MEDS ORDERED: CHLORHEXIDINE GLUCONATE 2 % 1 PACK (2 CLOTHS) TOPICAL PRN (06:00)
[2017-11-06] MEDS ORDERED: METOPROLOL TARTRATE 25 MG TAB PO PRN (06:00)
[2017-11-06] MEDS ORDERED: SODIUM CHLORID 0.9% 500 ML IV PRN (06:00)
[2017-11-06] MEDS ORDERED: POVIDONE IODINE 5% (ANTISEPSIS KIT) 4 APPLICATIONS EACH NARE PRN (06:00)
[2017-11-06] MEDS ORDERED: GENTAMICIN SULFATE 80 MG/2 ML VIAL ONE (06:12)
[2017-11-06] MEDS ORDERED: TOBRAMYCIN 1200 MG VIAL (for ortho/sterile core) OTHER ONE (06:13)
[2017-11-06] MEDS ORDERED: ACETAMINOPHEN 1000 MG/100 ML 100 ML IV ONE (06:43)
[2017-11-06] MEDS ORDERED: APREPITANT 40 MG CAP ONE (06:54)
[2017-11-06 06:57] VITALS: PULSE 47
[2017-11-06] MEDS: ceFAZolin 2 GM PREMIX 50 ML IV SCH ×2 (07:01→08:29)
[2017-11-06] MEDS ORDERED: BUPIVACAINE HCL PF 0.25% 30 ML VIAL ONE (07:04)
[2017-11-06] MEDS ORDERED: MIDAZOLAM HCL 5 MG/5 ML VIAL ONE (07:04)
[2017-11-06] MEDS ORDERED: BUPIVACAINE LIPOSOME PF 1.3% 20 ML VIAL ONE (07:04)
[2017-11-06] MEDS ORDERED: BUPIVACAINE LIPOSO PF 1.3% INJ 20 ML in SODIUM CHLORIDE 0.9% INJ 60 ML P-ARTICULR SCH (07:30)
[2017-11-06] MEDS ORDERED: TRANEXAMIC ACID INJ 988 MG in SODIUM CHLORIDE 0.9% INJ 100 ML IV SCH ×2 (07:30→10:30)
[2017-11-06] MEDS ORDERED: VANCOMYCIN 1250 MG/NS 250 ML (for 70-84 kg) IV SCH ×2 (07:30)
[2017-11-06] MEDS ORDERED: Post-op Orders (for Pharmacy) XX ONE (10:00)
[2017-11-06] MEDS ORDERED: MORPHINE SULFATE 30 MG/30 ML PCA IV SCH (10:00)
[2017-11-06] MEDS ORDERED: TRANEXAMIC ACID INJ 0 MG in SODIUM CHLORIDE 0.9% INJ 100 ML IV SCH (10:00)
[2017-11-06] MEDS ORDERED: diphenhydrAMINE HCL 50 MG/ML VIAL IV PUSH PRN (10:00)
[2017-11-06] MEDS ORDERED: NALOXONE HCL 0.4 MG/ML AMP IV PUSH PRN (10:00)
[2017-11-06] MEDS ORDERED: traMADol HCL 50 MG TAB PO PRN (10:00)
[2017-11-06] MEDS ORDERED: TRAM50 PO (10:16)
[2017-11-06] MEDS ORDERED: HYDR-3516 PO (10:16)
[2017-11-06] MEDS ORDERED: XARE10TA PO (10:16)
--- NOTE | 2017-11-06 10:18 | HHI.FF ---
Face to Face Verification Diagnosis: (1) HTN (hypertension) (2) Paroxysmal atrial fibrillation (3) Total knee replacement status Physical Therapy Gait training Knee: Total knee, Protocol: Right, Full weight bearing Right LE Range of Motion: Active Assistive ROM Nursing Nursing: Other Dressing Changes: Coverderm/Primapore (start dressing change satnovember 13, call MD if dressing soiled/saturated) I have seen patient Rafael Mead on 11/06/17. My clinical findings support the need for the requested home health care services because: Limited ability to care for self I certify that my clinical findings support that this patient is homebound because: Unsafe to leave home unassisted Unable to use public transportation Devin Hernandez MD November 06, 2017 10:18
[2017-11-06] MEDS ORDERED: DO NOT ADM ANY ANTICOAGULANT DRUGS PRN (10:19)
[2017-11-06] MEDS ORDERED: ADJUSTABLE COMM1 MIS (10:20)
[2017-11-06] MEDS ORDERED: WALKER WHEELS/F1 MIS (10:20)
[2017-11-06] MEDS: SODIUM CHLOR 0.9% 1000 ML INJ 1,000 ML IV SCH ×2 (10:36→21:37)
[2017-11-06] MEDS ORDERED: ONDANSETRON ODT 4 MG TAB SL PRN (10:45)
[2017-11-06] MEDS ORDERED: *morphine SULFATE 8 MG/ML PERIprocedure ONLY ONE (11:19)
--- NOTE | 2017-11-06 11:28 | MP ---
cc: Devin Hernandez MD DATE OF OPERATION: 11/06/2017 PREOPERATIVE DIAGNOSES: Osteoarthritis, right knee. POSTOPERATIVE DIAGNOSES: Osteoarthritis, right knee. OPERATIVE PROCEDURE: Total knee replacement arthroplasty right knee using Biomet components and the components were as follows: Femur: Right 70 mm. Tibial tray with I-beam stem: 75 mm, polyethylene 12 mm standard. Patella: A single peg button, small. SURGEON: Devin Hernandez MD. ANESTHESIA: General. TECHNIQUE: After induction of general anesthesia, the patient's right lower extremity thoroughly prepped with alcohol and ChloraPrep and draped in routine fashion. After application of Esmarch bandage, tourniquet was inflated to 300 mmHg. A vertical incision made slightly medial to the midline and deepened through the subcutaneous tissue. Medial parapatellar arthrotomy incision was carried out. Hemostasis obtained with cautery. Soft tissues elevated from the medial side of the tibia preserving the superficial medial collateral ligament and excising osteophytes on the tibia. Limited synovectomy was carried out superior to the femoral condyles. A distal femoral cutting guide set at 6 degrees was used after making an intramedullary opening. The distal femoral cut was made. There was adequate bone removal. An external tibial guide was used to take the tibial osteotomy referencing 4 mm from the lower most portion of the medial tibial plateau. AP femoral guide was used in satisfactory external rotation referencing the epicondylar axis and the Jessica's line and a 70 mm cutting guide was used to do the AP and chamfer cuts. Posterior condyles were checked and a large bone spur removed posteriorly from the medial side. Cleanup of the joint was carried out, followed by use of a spacer block which was tight in flexion and extension and therefore an additional 2 mm of bone removed from the tibia and this facilitated the spacer block very nicely and there was good balance in the quadrilateral space. We did do some additional release posteromedially where there was a large bone spur from the tibia and releasing the soft tissues from it also. The bony surfaces were prepared to receive the trials. Trial implants were placed. Knee extended with a 12 mm insert and everything looks good. The insert was removed and the patella was repaired following routine technique. With the medial medium patellar button, there was some tightness in the patellofemoral joint, but the small patellar button, which centered nicely, creates good patellar tracking. Trial implants were all removed. The femoral canal plugged with bone. A diluted Exparel was injected periarticularly. Using 2 units of Simplex cement with 1200 mg of tobramycin in it, the tibial tray cemented first, followed by the femur and followed by the patella. All excess cement removed. Knee was maintained in extension. Patellar clamp was placed. Tourniquet was released. Hemostasis obtained with cautery. The patient has some generalized oozing, probably some residual effect of the Xarelto. Closure was carried out in mid flexion with 3 or 4 interrupted #2 Vicryl sutures and the rest closed with #2 Quill, subcutaneous tissue with 2-0 Vicryl, skin closed with 3-0 subcuticular Quill and limited Steri-Strips. A Wood vacuum dressing was applied and the patient was transferred to the recovery room in satisfactory condition. The patient tolerated the procedure well. TRANSFUSIONS AND COMPLICATIONS: None. POSTOPERATIVE CONDITION: Satisfactory. PROGNOSIS: Good. ESTIMATED BLOOD LOSS: 150 mL. DRAINS: A Hemovac drain placed in the suprapatellar pouch and brought out superolaterally. MD ANJEL Bailye/ROHAN , 10:26 AM , 11:26 AM
--- NOTE | 2017-11-06 11:54 | RADRPT ---
EXAM DATE/TIME: 11/06/2017 11:28 [facility] COMPARISON: No previous studies available for comparison. INDICATIONS : Post op right knee surgery. MEDICAL HISTORY : Renal insufficiency. Hypertension. Benign prostatic hyperplasia, (BPH) Cerebrovascular accident. Afib . SURGICAL HISTORY : Tonsillectomy. Cataract removal. Bilateral knee surgery. Cerebral coiling. ENCOUNTER: Initial ACUITY: 1 day PAIN SCORE: Non-responsive. LOCATION: Right knee. FINDINGS: AP and lateral views of the knee following arthroplasty reveals a prosthesis in anatomic alignment. F racture is not appreciated. Surgical drain is evident CONCLUSION: Status post total knee arthroplasty. Bogdan Mejia MD FACR on November 06, 2017 at 11:52 Board Certified Radiologist. This report was verified electronically.
[2017-11-06] MEDS ORDERED: DEXAMETHASONE SOD PHOS 4 MG/ML VIAL IV ONE (12:00)
[2017-11-06] MEDS: TAMSULOSIN HCL 0.4 MG CAP PO SCH ×2 (12:00→21:16)
[2017-11-06] MEDS ORDERED: GLYCOPYRROLATE 1 MG/5 ML SYRINGE IV PUSH ONE (12:00)
[2017-11-06] MEDS ORDERED: LACTATED RINGER'S 1000 ML INJ 1,000 ML IV ONE (12:00)
[2017-11-06] MEDS ORDERED: NEOSTIGMINE 5 MG/5 ML SYRINGE IV PUSH ONE (12:00)
[2017-11-06] MEDS ORDERED: ONDANSETRON HCL 4 MG/2 ML VIAL IV ONE (12:00)
[2017-11-06] MEDS ORDERED: ePHEDrine/NS 25 MG/5 ML SYRINGE IV ONE (12:00)
[2017-11-06] MEDS ORDERED: ROCURONIUM INJ 50 MG/5 ML SYRINGE IV PUSH ONE (12:00)
[2017-11-06] MEDS ORDERED: LIDOCAINE HCL 1% PF 5 ML SYRINGE OTHER ONE (12:00)
[2017-11-06] MEDS ORDERED: PROPOFOL 200 MG/20 ML AMP IV ONE (12:00)
[2017-11-06 14:47] VITALS: BP 120/59; PULSE 60; RESP 16; TEMP 97.5; O2SAT 97
[2017-11-06] MEDS: CEFAZOLIN INJ 2,000 MG in SODIUM CHLORIDE 0.9% INJ 80 ML IV SCH (17:50)
[2017-11-06] MEDS ORDERED: VANCOMYCIN INJ 1,000 MG in SODIUM CHLOR 0.9% 250 ML INJ 250 ML IV SCH (19:00)
[2017-11-06 20:00] VITALS: BP 130/72; PULSE 56; RESP 18; TEMP 97.3; O2SAT 97
[2017-11-06] MEDS ORDERED: TEMAZEPAM 15 MG CAP PO PRN (21:00)
[2017-11-06] MEDS: ACETAMINOPHEN 1000 MG/100 ML VIAL IV SCH (21:17)
[2017-11-07] VITALS: BP 126/61; PULSE 45; RESP 21; TEMP 97.6; O2SAT 96
[2017-11-07] MEDS: CEFAZOLIN INJ 2,000 MG in SODIUM CHLORIDE 0.9% INJ 80 ML IV SCH (01:07)
[2017-11-07 04:00] VITALS: BP 125/69; PULSE 51; RESP 17; TEMP 97.3; O2SAT 97
[2017-11-07 04:42] LABS: HEMATOCRIT 35.1 % (39.0-51.0); HEMOGLOBIN 11.8 GM/DL (13.0-17.0)
[2017-11-07 05:05] LABS: BICARBONATE 28.2 MEQ/L (21.0-32.0); CALCIUM 8.1 MG/DL (8.5-10.1); CREATININE 0.89 MG/DL (0.60-1.30)
[2017-11-07] MEDS: PCA - TOTAL MG MORPHINE DELIVERED PER SHIFT IV SCH ×3 (05:43→21:02)
[2017-11-07] MEDS: SODIUM CHLOR 0.9% 1000 ML INJ 1,000 ML IV SCH ×3 (05:43→21:02)
--- NOTE | 2017-11-07 07:25 | PD.ORT.PN ---
Subjective Post Op Day #: 1 Pain Scale: 1 Subjective Remarks great, little trouble peeing at first, not now Range of Motion able to SLR and quad Objective Vitals Last 72 hours Impressions Knee X-Ray 11/06/17 1000 Signed Impressions: Service Date/Time: Monday, November 06, 2017 11:28 - CONCLUSION: Status post total knee arthroplasty. Bogdan Mejia MD Vital Signs Date Time Temp Pulse Resp B/P (MAP) Pulse Ox O2 Delivery O2 Flow Rate FiO2 11/07/17 05:43 18 11/07/17 04:00 97.3 51 17 125/69 (87) 97 11/07/17 00:00 97.6 45 21 126/61 (82) 96 11/06/17 20:00 97.3 56 18 130/72 (91) 97 11/06/17 14:47 97.5 60 16 120/59 (79) 97 11/06/17 14:30 96.5 62 19 115/66 (82) 100 Nasal Cannula 2 11/06/17 14:00 58 16 135/68 (90) 100 11/06/17 13:45 54 16 125/72 (89) 98 Nasal Cannula 2 11/06/17 13:35 Room Air 11/06/17 13:30 59 16 125/72 (89) 90 Nasal Cannula 2 11/06/17 13:00 51 20 125/71 (89) 99 11/06/17 12:00 51 12 131/79 (96) 100 11/06/17 11:30 53 10 142/80 (100) 100 11/06/17 11:15 52 11 167/79 (108) 100 11/06/17 11:00 53 12 170/86 (114) 100 11/06/17 10:53 12 11/06/17 10:45 53 15 158/92 (114) 100 11/06/17 10:30 60 15 166/82 (110) 98 Nasal Cannula 2 11/06/17 10:20 97.4 63 12 149/88 (108) 96 Nasal Cannula 2 I/O 11/06/17 11/06/17 11/06/17 11/07/17 11/07/17 11/07/17 07:00 15:00 23:00 07:00 15:00 23:00 Intake Total 2000 ml 1367 ml 1711 ml Output Total 3185 ml 100 ml 1130 ml Balance -1185 ml 1267 ml 581 ml Intake Oral 800 ml IV Total 2000 ml 1367 ml 911 ml Output Urine Total 50 ml 1000 ml Drainage Total 35 ml 50 ml 130 ml Estimated Blood Loss 150 ml Other 3000 ml Result Diagram: 11/07/17 0425 11/07/17 0425 Imaging Last 24 hours Impressions Knee X-Ray 11/06/17 1000 Signed Impressions: Service Date/Time: Monday, November 06, 2017 11:28 - CONCLUSION: Status post total knee arthroplasty. Bogdan Mejia MD Objective Remarks A.A, and O comfortable, moves warm toes well Assessment & Plan Ortho Post Op Day #: 1 Problem List: Assessment and Plan POD # 1 TKA right Home with [facility] tomorrow Devin Hernandez MD November 07, 2017 07:25
[2017-11-07 08:00] VITALS: BP 121/59; PULSE 53; RESP 16; TEMP 97.6; O2SAT 96
[2017-11-07] MEDS: TAMSULOSIN HCL 0.4 MG CAP PO SCH ×2 (08:55→21:02)
[2017-11-07] MEDS: VALSARTAN 80 MG TAB PO SCH (08:55)
[2017-11-07] MEDS: amLODIPine BESYLATE 5 MG TAB PO SCH (08:56)
[2017-11-07] MEDS: METOPROLOL SUCCINATE 50 MG EXTENDED RELEASE TAB PO SCH (08:56)
[2017-11-07] MEDS: PANTOPRAZOLE SOD 40 MG DELAYED RELEASE TAB PO SCH (08:56)
[2017-11-07] MEDS: RIVAROXABAN 10 MG TAB PO SCH (08:56)
[2017-11-07] MEDS: ATORVASTATIN 40 MG TAB PO SCH (08:56)
[2017-11-07] MEDS: ceFAZolin 2 GM PREMIX 50 ML IV SCH (08:57)
[2017-11-07] MEDS: ACETAMINOPHEN 1000 MG/100 ML VIAL IV SCH ×2 (09:00→21:00)
[2017-11-07 12:00] VITALS: BP 127/69; PULSE 65; RESP 16; TEMP 98.2; O2SAT 98
[2017-11-07] MEDS: ACETAMINOPHEN/HYDROcodone 325 MG/5 MG TAB PO PRN ×3 (12:47→18:09)
[2017-11-07 16:00] VITALS: BP 113/58; PULSE 57; RESP 16; TEMP 98.5; O2SAT 98
[2017-11-07 19:50] VITALS: BP 114/56; PULSE 60; RESP 17; TEMP 97.7; O2SAT 94
[2017-11-07] MEDS: DOCUSATE SODIUM 100 MG CAP PO SCH (21:02)
[2017-11-08 00:10] VITALS: BP 137/81; PULSE 58; RESP 16; TEMP 98; O2SAT 99
[2017-11-08] MEDS: ACETAMINOPHEN/HYDROcodone 325 MG/5 MG TAB PO PRN ×2 (02:15→10:11)
[2017-11-08] MEDS: PCA - TOTAL MG MORPHINE DELIVERED PER SHIFT IV SCH ×2 (06:00→14:00)
--- NOTE | 2017-11-08 07:47 | PD.ORT.PN ---
Subjective Post Op Day #: 2 Pain Scale: 4 Subjective Remarks dressing leak ( PECO) fixed by nursing staff Trying to bend knee Objective Vitals Vital Signs Date Time Temp Pulse Resp B/P (MAP) Pulse Ox O2 Delivery O2 Flow Rate FiO2 11/08/17 00:10 98.0 58 16 137/81 (99) 99 11/07/17 19:50 97.7 60 17 114/56 (75) 94 11/07/17 19:28 Room Air 11/07/17 19:16 Room Air 11/07/17 16:00 98.5 57 16 113/58 (76) 98 11/07/17 12:00 98.2 65 16 127/69 (88) 98 11/07/17 08:00 97.6 53 16 121/59 (79) 96 I/O 11/07/17 11/07/17 11/07/17 11/08/17 11/08/17 11/08/17 07:00 15:00 23:00 07:00 15:00 23:00 Intake Total 1711 ml 1440 ml 720 ml Output Total 1130 ml 140 ml 425 ml Balance 581 ml -140 ml 1015 ml 720 ml Intake Oral 800 ml 1440 ml 720 ml IV Total 911 ml Output Urine Total 1000 ml 425 ml Drainage Total 130 ml 140 ml # Voids 2 2 # Bowel Movements 0 0 Result Diagram: 11/07/17 0425 11/07/17 0425 Imaging Last 24 hours Impressions Knee X-Ray 11/06/17 1000 Signed Impressions: Service Date/Time: Monday, November 06, 2017 11:28 - CONCLUSION: Status post total knee arthroplasty. Bogdan Mejia MD Objective Remarks A.A, and O dressing dry and PECO functioning. moves warm toes well Assessment & Plan Ortho Post Op Day #: 2 Problem List: Assessment and Plan POD # 2 TKA DCinstructions given and meds discussed Spare PECO given with instructions. DC this afternoon To see me Saturday. has Devin Durham MD November 08, 2017 07:47
[2017-11-08 08:00] VITALS: BP 150/81; PULSE 59; RESP 16; TEMP 98.6; O2SAT 100
[2017-11-08] MEDS: DOCUSATE SODIUM 100 MG CAP PO SCH (08:53)
[2017-11-08] MEDS: PANTOPRAZOLE SOD 40 MG DELAYED RELEASE TAB PO SCH (08:54)
[2017-11-08] MEDS: ATORVASTATIN 40 MG TAB PO SCH (08:54)
[2017-11-08] MEDS: TAMSULOSIN HCL 0.4 MG CAP PO SCH (08:54)
[2017-11-08] MEDS: RIVAROXABAN 10 MG TAB PO SCH (08:54)
[2017-11-08] MEDS: METOPROLOL SUCCINATE 50 MG EXTENDED RELEASE TAB PO SCH (08:54)
[2017-11-08] MEDS: VALSARTAN 80 MG TAB PO SCH (08:56)
[2017-11-08] MEDS: amLODIPine BESYLATE 5 MG TAB PO SCH (09:00)
[2017-11-08 12:00] VITALS: BP 116/62; PULSE 70; RESP 17; TEMP 98.8; O2SAT 97
== END 2017-11-08 15:59 | disposition home health service (06) | DRG 470 ==
LOC: HSDI 05:26 → N06B 14:49
PROVIDERS: ADMIT Orthopaedic Surgery; ATTEND Orthopaedic Surgery
PROC: 3E0T3BZ Introduction of Anesthetic Agent into Peripheral Nerves and Plexi, Percutaneous Approach (ICD-10-PCS; 2017-11-06)
PROC: 0SRC0J9 Replacement of Right Knee Joint with Synthetic Substitute, Cemented, Open Approach (ICD-10-PCS; principal; 2017-11-06 07:19)
DX: M17.11 Unilateral primary osteoarthritis, right knee (principal); I48.0 Paroxysmal atrial fibrillation; I10 Essential (primary) hypertension; E66.9 Obesity, unspecified; M21.161 Varus deformity, not elsewhere classified, right knee; M25.761 Osteophyte, right knee; K21.9 Gastro-esophageal reflux disease without esophagitis; Z68.34 Body mass index [BMI] 34.0-34.9, adult; Z79.01 Long term (current) use of anticoagulants; Z87.891 Personal history of nicotine dependence; Z96.652 Presence of left artificial knee joint
CPT/HCPCS: 73560; 80048; 85014; 85018; 86850; 86900; 86901; 94150; C1776; C9290; J0131; J0690; J1100; J1580; J2250; J2270; J2405; J2710; J3010; J3370; J7030; J7050; J7120; J8501